=== PATIENT | female | born 1945 ===

== ENCOUNTER 2016-12-01 04:58 | Inpatient (IN) | payer MEDICAID, OTHER ==
[2016-12-01] MEDS ORDERED: Tetanus/Diphtheria Toxoids 0.5 ml Syringe IM ONE ×2 (06:00→06:06)
[2016-12-01] MEDS ORDERED: Epinephrine /Lidocaine HCL 1:100,000/2% 30 ml INJ ONE (06:01)
--- NOTE | 2016-12-01 06:22 | C.PDOC ---
History Of Present Illness 71 year old female presents to the ED by EMS with complaints of trauma to her head after tripping and falling on the sidewalk. Patient admits to being intoxicated and denies fever, LOC, and any other complaints at this time. Time Seen by Provider: 12/01/16 05:26 Chief Complaint (Nursing): Substance Abuse History Per: Patient, EMS History/Exam Limitations: no limitations Onset/Duration Of Symptoms: Hrs Current Symptoms Are (Timing): Still Present Past Medical History Vital Signs: Last Vital Signs Temp 97.8 F 12/01/16 05:13 Pulse 86 12/01/16 05:13 Resp 16 12/01/16 05:13 BP 117/58 L 12/01/16 05:13 Pulse Ox 95 12/01/16 06:28 - Medical History PMH: HTN - [facility] Procedures INSERT INDWELLING CATH (05/19/15) Family History: States: No Known Family Hx - Social History Hx Tobacco Use: No Hx Alcohol Use: Yes Hx Substance Use: No - Immunization History Hx Tetanus Toxoid Vaccination: No Hx Influenza Vaccination: Yes Hx Pneumococcal Vaccination: No Review Of Systems Review Of Systems: ROS cannot be obtained secondary to pt's inabilty to answer questions. Constitutional: Negative for: Fever, Chills Respiratory: Negative for: Shortness of Breath Gastrointestinal: Negative for: Nausea, Vomiting, Abdominal Pain, Diarrhea Neurological: Negative for: Confusion, Dizziness Physical Exam - Physical Exam Appears: Non-toxic, No Acute Distress Skin: Warm, Dry Head: Laceration (2 cm laceration to left parietal scalp ) Eye(s): bilateral: Normal Inspection, PERRL, EOMI Oral Mucosa: Moist Tongue: Normal Appearing Lips: Normal Appearing Teeth: Normal Dentition, No Loose Gingiva: Normal Appearing Throat: Normal, No Erythema Neck: Normal ROM, No Midline Cervical Tenderness, No Paracervical Tenderness, Supple Cardiovascular: Rhythm Regular, No Friction Rub, No Murmur Respiratory: No Accessory Muscle Use, No Rales, No Rhonchi, No Stridor, No Wheezing Gastrointestinal/Abdominal: Soft, No Tenderness, No Distention, No Guarding, No Rebound Back: Normal Inspection, No Vertebral Tenderness, No Paraspinal Tenderness Extremity: Normal ROM, No Tenderness Neurological/Psych: Oriented x3, Normal Speech, Normal Motor Gait: Steady ED Course And Treatment O2 Sat by Pulse Oximetry: 95 (on RA) Pulse Ox Interpretation: Normal Progress Note: IMPRESSION: 1. Small vessel ischemic/degenerative changes. If there is a focal neurologic deficit, consider MRI. evaluation. 2. Hematoma in the left lateral scalp Procedure: Wound Repair - Time Performed Time Performed: 06:10 - Time Out Time Out: Side verified, Site verified - Consent Obtained Consent obtained: Verbal - Performed by Performed by: Mid-level Provider (Joslyn) - Indications Indication(s):: Laceration - Location Location:: Scalp Dimensions Length cm: 2 Depth:: Epidermis - Debris Debris:: None - Irrigated Irrigated with ml of normal saline: 60 - Complexity Complexity:: Simple (one layer) - Wound repair method Sutures:: Technique (Four karol) - Patient tolerated procedure Patient Tolerated Procedure:: Well ED OBSERVATION Date of observation admission: 12/01/16 Time of observation admission: 04:55 - Observation admission statement Patient is being placed in observation because:: alcohol intoxication - Goals of Observation Goals of observation are:: Observing for sobriety - Progress Note Progress Note: 12/01/16 0600 Results were discussed with the radiologist about C7 fracture. Patient placed in Hard C-collar. The case was discussed with Dr. Cruz (Neurosurgeon oncall) who has reviewed the films and states that the patient must stay in a hard [place]J collar and can be discharged home and will follow up outpatient within 1-2 days without fail. Disposition - Disposition Disposition: HOME/ ROUTINE Disposition Time: 06:59 Condition: STABLE - Clinical Impression Clinical Impression: Scalp laceration, Head injury, Cervical spine fracture, Alcohol intoxication - Scribe Statement The provider has reviewed the documentation as recorded by the Scribe Ana Tam All medical record entries made by the Scribe were at my direction and personally dictated by me. I have reviewed the chart and agree that the record accurately reflects my personal performance of the history, physical exam, medical decision making, and the department course for this patient. I have also personally directed, reviewed, and agree with the discharge instructions and disposition. Physician Patient Turnover Patient Signed Over To: Cee Fu (Dr. Hanna) Handoff Comments: Pending sobreity and disposition
[2016-12-01] MEDS ORDERED: Bacitracin 500 Units/gm Oint Foilpak UD ONE (06:26)
--- NOTE | 2016-12-01 06:36 | CT ---
EXAM: CT Cervical Spine Without Intravenous Contrast CLINICAL HISTORY: 71 years old, female; Pain; Neck pain; Additional info: Head injury, AMS TECHNIQUE: Axial computed tomography images of the cervical spine without intravenous contrast. This CT exam was performed using one or more of the following dose reduction techniques: automated exposure control, adjustment of the mA and/or kV according to patient size, and/or use of iterative reconstruction technique. Coronal and sagittal reformatted images were created and reviewed. EXAM DATE/TIME: 12/01/2016 5:27 AM COMPARISON: No relevant prior studies available. FINDINGS: Vertebrae: Osteophytes most prominent at C5 and C6. Nondisplaced fractures right C7 lamina, superior articulating facet and pedicle. Pedicle fracture extends to the right superior posterior C7. No malalignment. Discs/spinal canal/neural foramina: Facet joint arthrosis most prominent at C4-5 and C7-T1. Disc space narrowing at C5-6, and to less extent C3-4 and C4-5. Soft tissues: Unremarkable. Lung apices: Unremarkable as visualized. IMPRESSION: C7 fracture involving the right lamina, superior to T3 facet, pedicle and superior posterior vertebral body.
[2016-12-01] MEDS ORDERED: Bacitracin 500 Units/gm Oint Foilpak UD TOP STA (06:57)
--- NOTE | 2016-12-01 09:12 | CT ---
PROCEDURE: CT HEAD WITHOUT CONTRAST. HISTORY: head injury, altered mental status COMPARISON: None available. TECHNIQUE: Axial computed tomography images were obtained through the head/brain without intravenous contrast. Radiation dose: Total exam DLP = 813 mGy-cm. This CT exam was performed using one or more of the following dose reduction techniques: Automated exposure control, adjustment of the mA and/or kV according to patient size, and/or use of iterative reconstruction technique. FINDINGS: HEMORRHAGE: No intracranial hemorrhage. BRAIN: No mass effect or edema. Scattered focal lucencies in the subcortical and periventricular white matter suggestive for severe chronic microvascular ischemic change. Additional etiologies not excluded. VENTRICLES: Unremarkable. No hydrocephalus. CALVARIUM: Unremarkable. PARANASAL SINUSES: Unremarkable as visualized. No significant inflammatory changes. MASTOID AIR CELLS: Unremarkable as visualized. No inflammatory changes. OTHER FINDINGS: Hematoma in the left lateral scalp. IMPRESSION: Hematoma in the left lateral scalp. Scattered focal lucencies in the subcortical and periventricular white matter suggestive for severe chronic microvascular ischemic change. Additional etiologies not excluded. Correlation with MRI may be helpful if clinically indicated. These findings were preliminarily reported at 6:23 a.m. on 12/01/[address] Vu Manriquez from [facility]
[2016-12-01 10:16] LABS: BASO % 0.3 % (0.0-2.0); EOS % 0.1 % (0.0-4.0); HEMATOCRIT 38.1 % (34.0-47.0); LYMPH # 1.2 K/uL (1.0-4.3); LYMPH % 15.2 % (20.0-40.0); MEAN CORPUSCULAR HGB CONC 33.3 g/dL (33.0-37.0); MEAN PLATELET VOLUME 9.6 fL (7.2-11.7); MONO # 0.6 K/uL (0.0-0.8); MONO % 7.9 % (0.0-10.0); NRBC % 0.1 % (0.0-2.0); RED CELL DISTRIBUTION WIDTH 13.3 % (11.5-14.5); WHITE BLOOD COUNT 7.6 K/uL (4.8-10.8)
[2016-12-01 10:17] LABS: CHLORIDE 97 mmol/L (98-107); SODIUM 138 mmol/L (132-148)
[2016-12-01 10:19] LABS: AST/SGOT 46 U/L (14-36); BILIRUBIN,TOTAL 0.3 mg/dL (0.2-1.3); CARBON DIOXIDE 24 mmol/L (22-30); GFR AFRICAN-AMERICAN > 60; MEAN CELL VOLUME 87.1 fL (81.0-99.0)
[2016-12-01 10:20] LABS: ALKALINE PHOSPHATASE 64 U/L (38-126); ALT/SGPT 23 U/L (9-52); BLOOD UREA NITROGEN 11 mg/dL (7-17); CALCIUM 8.8 mg/dl (8.6-10.4); GLUCOSE,RANDOM 129 mg/dL (65-105); TOTAL PROTEIN 8.6 g/dL (6.3-8.3)
[2016-12-01] MEDS ORDERED: Pantoprazole 40 mg EC Tab PO SCH (12:00)
[2016-12-01] MEDS: HYDROmorphone 1 mg/ml ISec IVP PRN (12:57)
[2016-12-01] MEDS: Multiple Vitamins Tab PO SCH (12:58)
[2016-12-01 14:49] LABS: URINE BILIRUBIN NEGATIVE (NEGATIVE); URINE BLOOD NEGATIVE (NEGATIVE); URINE COLOR Straw (YELLOW); URINE GLUCOSE (UA) NORMAL (Normal); URINE KETONE NEGATIVE (NEGATIVE); URINE LEUKOCYTE ESTERASE NEG Leu/uL (Negative); URINE PROTEIN NEGATIVE (NEGATIVE); URINE UROBILINOGEN NORMAL mg/dL (0.2-1.0); WBC URINE < 1 /hpf (0-5)
--- NOTE | 2016-12-01 15:06 | CP.PCM.HP ---
History of Present Illness - History of Present Illness History of Present Illness: 71-year-old female presents to the ED by EMS with complaints of trauma to her head after tripping and falling on the sidewalk. Patient admits to being intoxicated and denies fever, LOC and any other complaints at this time. Present on Admission - Present on Admission Any Indicators Present on Admission: No Past Patient History - Infectious Disease Hx of Infectious Diseases: None - Past Social History Smoking Status: Never Smoked - CARDIAC Hx Hypertension: Yes - MUSCULOSKELETAL/RHEUMATOLOGICAL Hx Falls: Yes - GENITOURINARY/GYNECOLOGICAL Hx Urinary Tract Infection: Yes - PSYCHIATRIC Hx Anxiety: Yes Hx Depression: Yes Hx Substance Use: No - SURGICAL HISTORY Other/Comment: kidney stone surgery - ANESTHESIA Hx Anesthesia: Yes Hx Anesthesia Reactions: No Meds Home Medications: Home Medication List Medication Instructions Recorded Confirmed Type Alprazolam [Xanax] 0.5 mg PO HS PRN #30 tab 12/05/16 Rx Bisacodyl [Dulcolax] 5 mg PO DAILY tabec 12/05/16 Rx Gabapentin [Neurontin] 300 mg PO BID cap 12/05/16 Rx Multivitamins [Hexavitamin] 1 tab PO DAILY tab 12/05/16 Rx Pantoprazole [Protonix EC Tab] 40 mg PO DAILY ect 12/05/16 Rx Polyethylene Glycol 3350 [Miralax] 17 gm PO DAILY packet 12/05/16 Rx Thiamine [Vitamin B1 Tab] 100 mg PO DAILY tab 12/05/16 Rx Allergies/Adverse Reactions: Allergies Allergy/AdvReac Type Severity Reaction Status Date / Time No Known Allergies Allergy Verified 12/04/15 13:24 Results - Vital Signs Recent Vital Signs: Last Vital Signs Temp 98.3 F 12/01/16 10:55 Pulse 95 H 12/01/16 11:30 Resp 20 12/01/16 10:55 BP 110/65 12/01/16 11:10 Pulse Ox 96 12/01/16 10:55 - Labs Result Diagrams: 12/05/16 06:05 12/05/16 06:05 Labs: Laboratory Results - last 24 hr 12/01/16 12/01/16 10:01 14:25 WBC 7.6 RBC 4.37 Hgb 12.7 Hct 38.1 MCV 87.1 D MCH 29.0 MCHC 33.3 RDW 13.3 Plt Count 158 MPV 9.6 Neut % (Auto) 76.5 H Lymph % (Auto) 15.2 L [place] % (Auto) 7.9 Eos % (Auto) 0.1 Baso % (Auto) 0.3 Neut # 5.8 Lymph # 1.2 [place] # 0.6 Eos # 0.0 Baso # 0.0 Sodium 138 Potassium 4.0 Chloride 97 L Carbon Dioxide 24 Anion Gap 22 H BUN 11 Creatinine 0.6 L Est GFR ( Amer) > 60 Est GFR (Non-Af Amer) > 60 Random Glucose 129 H Calcium 8.8 Total Bilirubin 0.3 AST 46 H D ALT 23 Alkaline Phosphatase 64 Total Creatine Kinase 427 H CK-MB (Mass) 3.10 Troponin I < 0.0120 Total Protein 8.6 H Albumin 4.4 Globulin 4.2 H Albumin/Globulin Ratio 1.0 Urine Color Straw Urine Clarity Clear Urine pH 5.0 Ur Specific [place] 1.006 Urine Protein Negative Urine Glucose (UA) Normal Urine Ketones Negative Urine Blood Negative Urine Nitrate Negative Urine Bilirubin Negative Urine Urobilinogen Normal Ur Leukocyte Esterase Neg Urine WBC (Auto) < 1 Assessment & Plan - Assessment and Plan (Free Text) Plan: protonix cannt give lovenox fracture c7 ct head minor bleed s/p dr. scott neuro pt has uri rentension adn 1200 cc on bld scan s/p foleys cath urology consult u c/s will rain nitrofurantoind uc/s rain followup with consultants quentin dudley
--- NOTE | 2016-12-01 16:32 | CON ---
DATE: 12/01/2016 ATTENDING PHYSICIAN: Dr. Haddad REASON FOR CONSULTATION: Syncope and head trauma and fractured vertebrae. HISTORY OF PRESENT ILLNESS: The patient is a 71-year-old lady with past medical history of ethanol a buse. The patient was admitted because of a fall while getting out of the house of a friend after a birthday constitution party. The patient had wine and beer and on the way she went to the club. On the way, monalisa anderson fell down and hit her head against a tree. The patient is not sure that she lost consciousness, mo st likely because patient hit her head and fell down to the floor and found herself on the floor. Th e patient sustained a cut to her skull that needed stitches and a fracture to her pedicles of the C7 vertebrae. The patient is currently having a hard [place] J collar. In the Emergency Room, the monalisa anderson had nausea and vomiting and was given Zofran. PAST MEDICAL HISTORY: Hypertension and ethanol abuse. FAMILY HISTORY: Father and mother, as per patient, were alcoholics. In addition to hypertension, eliana hood has depression as well, seeing psychiatrist. REVIEW OF SYSTEMS: As per H and P and ER notes, reviewed. PHYSICAL EXAMINATION: VITAL SIGNS: Blood pressure 117/58, pulse 86, respirations 16, temperature 97.8. MENTAL STATUS: The patient is alert, awake, oriented x 3. Normal naming, repetition and comprehensi on. No agnosia. No apraxia. No right to left confusion. CRANIAL NERVES: Pupils 2 mm, bilaterally reactive to light and accommodation. There is mild bilater al cataract. No nystagmus. No double vision. No blurred vision, no facial palsy. No field defect. V1-V3 intact. MOTOR: Normal tone in upper and lower extremities. No pronation drift. No tremors. No action, pos tural tremors. Fine finger movement intact. 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 Lower extremities: Hip flexion, knee flexion and extension, ankle dorsiflexion, plantar extension 5/5. Pat p tendon reflexes 1 in upper and lower extremities, absent at the ankles, plantars flex on both sides . SENSORY: Pinprick and light touch intact. COORDINATION: [id number] intact. IMAGING: I have reviewed the patient's CAT scan of the cervical and the brain, cervical consistent w ith C7 pedicle fracture on the right side and the patient has severe periventricular white matter dis ease, probable bilateral subcortical infarct cannot be excluded. In addition, the patient to have pe riventricular white matter disease secondary to small vessel ischemic changes. IMPRESSION: Status post concussion with questionable loss of consciousness, sustained a fracture to the C7 pedicle on the right side. In addition, the patient has periventricular white matter disease, might represent old infarct versus severe periventricular white matter disease, especially the left subcortical one is more prominent than the right subcortical. Will do repeat CAT scan in the morning and if stroke confirmed and the hypodensity is more than first initial CAT scan, possibility of cere brovascular accident is highly likely. Unfortunately, the patient cannot do MRI because of the metal lic karol in the skull. I have advised the patient to follow up with a neurologist after discharge as an outpatient and have strongly recommended the patient to discontinue her drinking. This is the fourth episode for the patient and she is at high risk for her falls and head trauma and fractures. Above also discussed with daughter at bedside. All her questions and concerns were answered. She will have an EEG and repeat CAT scan in the a.m. and Dr. Garcia will follow the patient tomorrow. Thank you for the consultation. Saleem Rodrigez MD cc: [id number] TT: 12/01/2016 16:31:18 Confirmation # [id number] Dictation # [id number]
--- NOTE | 2016-12-01 18:54 | CON ---
DATE: 12/01/2016 This is a 71-year-old lady who quite continue seemingly was drinking heavily last night into the morn ing, fell. She states this is her fourth fall. She was brought to the [facility] ER complainin g of mostly headache actually. She underwent a CT of the brain and spine. Somewhat surprising the [facility] CT showed a spine fracture. Neurosurgical evaluation was requested. The patient at this point in time does state she is having pain in the lower cervical area. Denies a ny numbness, weakness, tingling or other neurological symptoms. Her past medical history, medications, allergies, etc. were all reviewed in the EMR. PHYSICAL EXAMINATION: GENERAL: She is bright, awake and alert. HEENT: Pupils are equal and reactive. Extraocular movements are full. NEUROLOGIC: She has 5/5 strength in all 4 extremities. Sensory exam is grossly intact. Excellent p roprioception bilaterally. Reflexes are muted throughout. CT shows a linear fracture essentially through the right C7 lamina facet junction into the pedicle. There is no displacement at all. There is no significant part of the fracture involving the body and the left side is completely intact. IMPRESSION AND PLAN: I believe this is a fracture that can successfully be treated and an external o rthosis. I have placed her in a [place] J collar myself. She has a size regular which fits her quite nicely. My recommendation would be to continue her in the [place] J collar for 6 weeks and check a fol lowup CT scan at that time, with again a very high chance of successful healing. I underscored to her and her daughter, who also served as an clerical office, that it is imperative that she remain in the collar at all times. This was emphasized to her in the strongest possible term. M y recommendation would be to obtain a second collar for her in the same size so that she can carefull y alternate and keep them clean. I gave her my business card. I will see her in the office within the next several weeks and arrange for a followup CT scan as documented above. Milind Cruz MD cc: [id number] TT: 12/01/2016 18:53:45 Confirmation # [id number] Dictation # [id number] mn
[2016-12-02] MEDS: HYDROmorphone 1 mg/ml ISec IVP PRN ×3 (00:09→17:44)
--- NOTE | 2016-12-02 08:36 | PN ---
DATE: 12/02/2016 NEUROLOGICAL PROBLEM: Syncopal attack secondary to alcohol intoxication with status post cervical ve rtebral fracture. PHYSICAL EXAMINATION: VITAL SIGNS: Blood pressure 109/73, mean arterial pressure of 85, respiratory rate 16, temperature 9 8.9, pulse rate 93. NEUROLOGIC: The patient is more awake, alert. No antegrade amnesia. Complaining of pain in her nec k, some numbness on her left arm which is from the way she slept on her left side and the position in the bed. She denies any weakness of her arms and legs. No visual disturbances. NECK: Immobilized with a hard collar. The patient also had karol on her left parietal region. RECOMMENDATIONS: 1. The patient did have a laceration on her left side and the patient should have a followup CT of t he head to rule out any delayed bleed. However, MRA should be done when the karol have been remove d. 2. Electroencephalogram should be done to rule out any seizure activities. 3. Unwanted medication should be discontinued such as zolpidem should be discontinued. 4. The patient is requested to have an electroencephalogram and the patient also discussed about her alcohol abstinence. Unwanted sedatives should be discontinued at present. 5. The patient's further workup is depending on recommended workup as well as the results. 6. The patient is also recommended to have orthopedic evaluation for her cervical spine fracture. The patient will be followed closely with you. Otis Garcia MD cc: [id number] TT: 12/02/2016 08:36:43 Confirmation # [id number] Dictation # [id number] mn
[2016-12-02] MEDS ORDERED: Home Med 1 UNIT (Valsartan [Diovan] 1 TAB) PO SCH (10:00)
--- NOTE | 2016-12-02 10:00 | CT ---
PROCEDURE: CT HEAD WITHOUT CONTRAST. HISTORY: repeat Head CT status post fall COMPARISON: 12/01/2016 TECHNIQUE: Axial computed tomography images were obtained through the head/brain without intravenous contrast. Radiation dose: Total exam DLP = 981.84 mGy-cm. This CT exam was performed using one or more of the following dose reduction techniques: Automated exposure control, adjustment of the mA and/or kV according to patient size, and/or use of iterative reconstruction technique. FINDINGS: HEMORRHAGE: No intracranial hemorrhage. BRAIN: No mass effect or edema. Mild diffuse atrophy. Scattered foci of white matter low attenuation in the periventricular deep and subcortical white matter consistent with microvascular ischemic change. No evidence of acute infarct. VENTRICLES: Unremarkable. No hydrocephalus. CALVARIUM: No fracture. Left frontal scalp contusion with cutaneous karol. PARANASAL SINUSES: Unremarkable as visualized. No significant inflammatory changes. MASTOID AIR CELLS: Unremarkable as visualized. No inflammatory changes. OTHER FINDINGS: None. IMPRESSION: No intracranial hemorrhage. Age related involutional changes. No significant change from CT examination of 12/01/2016.
[2016-12-02] MEDS: Multiple Vitamins Tab PO SCH (11:00)
[2016-12-02] MEDS: Pantoprazole 40 mg EC Tab PO SCH (11:00)
--- NOTE | 2016-12-02 11:20 | CP.PCM.PN ---
Subjective - Date & Time of Evaluation Date of Evaluation: 12/02/16 Time of Evaluation: 11:16 - Subjective Subjective: Pt admitted afer fall wth acute cervical fracture,who developed urinary retention. pt has a mohr in place. A acute urinary retention. Suggest leave mohr,when cervical fx stabalized. pt should be refered to who accepts [facility] plan for full outpatient gu eval. Objective - Vital Signs/Intake and Output Vital Signs (last 24 hours): Temp Pulse Resp BP Pulse Ox 99.8 F H 93 H 18 136/73 96 12/02/16 07:02 12/02/16 10:58 12/02/16 07:02 12/02/16 10:58 12/02/16 07:02 Intake and Output: 12/02/16 12/02/16 06:59 18:59 Intake Total 60 Output Total 900 Balance -840 - Medications Medications: Current Medications Alprazolam (Xanax) 0.5 mg PO HS [facility] Last Admin: 12/01/16 21:16 Dose: 0.5 mg Ciprofloxacin (Cipro) 250 mg PO BID [facility] Last Admin: 12/01/16 17:54 Dose: 250 mg Hydrochlorothiazide (Microzide) 12.5 mg PO DAILY [facility] Last Admin: 12/02/16 11:00 Dose: 12.5 mg Hydromorphone HCl (Dilaudid) 1 mg IVP Q8H PRN PRN Reason: Pain, moderate (4-7) Last Admin: 12/02/16 08:29 Dose: 1 mg Losartan Potassium (Cozaar) 100 mg PO DAILY [facility] Last Admin: 12/02/16 11:00 Dose: 100 mg Multivitamins (Hexavitamin) 1 tab PO DAILY [facility] Last Admin: 12/02/16 11:00 Dose: 1 tab Pantoprazole Sodium (Protonix Ec Tab) 40 mg PO DAILY [facility] Last Admin: 12/02/16 11:00 Dose: 40 mg Pneumococcal Polyvalent Vaccine (Pneumovax 23 Vaccine) 0.5 ml IM .ONCE ONE Stop: 12/04/16 10:01 Thiamine HCl (Vitamin B1 Tab) 100 mg PO DAILY [facility] Last Admin: 12/02/16 11:00 Dose: 100 mg - Labs Labs: 12/01/16 10:01 12/01/16 10:01
--- NOTE | 2016-12-02 18:42 | CARD ---
APPROVED REPORT EKG Measurement Heart [id number] <Conclusion> Normal sinus rhythm Nonspecific T wave abnormality Abnormal ECG
--- NOTE | 2016-12-02 18:53 | CP.PCM.PN ---
Subjective - Date & Time of Evaluation Date of Evaluation: 12/02/16 Time of Evaluation: 02:20 - Subjective Subjective: clinically same s/p Dr Harvey ocasio Objective - Vital Signs/Intake and Output Vital Signs (last 24 hours): Temp Pulse Resp BP Pulse Ox 97.5 F L 86 20 151/84 H 95 12/02/16 16:39 12/02/16 18:27 12/02/16 16:39 12/02/16 16:39 12/02/16 16:39 Intake and Output: 12/02/16 12/02/16 06:59 18:59 Intake Total 60 200 Output Total 900 400 Balance -840 -200 - Medications Medications: Current Medications Alprazolam (Xanax) 0.5 mg PO HS [facility] Last Admin: 12/01/16 21:16 Dose: 0.5 mg Ciprofloxacin (Cipro) 250 mg PO BID [facility] Last Admin: 12/02/16 17:44 Dose: 250 mg Hydrochlorothiazide (Microzide) 12.5 mg PO DAILY [facility] Last Admin: 12/02/16 11:00 Dose: 12.5 mg Hydromorphone HCl (Dilaudid) 1 mg IVP Q8H PRN PRN Reason: Pain, moderate (4-7) Last Admin: 12/02/16 17:44 Dose: 1 mg Losartan Potassium (Cozaar) 100 mg PO DAILY [facility] Last Admin: 12/02/16 11:00 Dose: 100 mg Multivitamins (Hexavitamin) 1 tab PO DAILY [facility] Last Admin: 12/02/16 11:00 Dose: 1 tab Pantoprazole Sodium (Protonix Ec Tab) 40 mg PO DAILY [facility] Last Admin: 12/02/16 11:00 Dose: 40 mg Pneumococcal Polyvalent Vaccine (Pneumovax 23 Vaccine) 0.5 ml IM .ONCE ONE Stop: 12/04/16 10:01 Thiamine HCl (Vitamin B1 Tab) 100 mg PO DAILY [facility] Last Admin: 12/02/16 11:00 Dose: 100 mg - Labs Labs: 12/01/16 10:01 12/01/16 10:01 - Constitutional Appears: Well - Head Exam Head Exam: ATRAUMATIC, NORMAL INSPECTION, NORMOCEPHALIC - Eye Exam Eye Exam: EOMI, Normal appearance, PERRL Pupil Exam: NORMAL ACCOMODATION, PERRL - ENT Exam ENT Exam: Mucous Membranes Moist, Normal Exam - Neck Exam Neck Exam: Full ROM, Normal Inspection. absent: Lymphadenopathy - Respiratory Exam Respiratory Exam: Decreased Breath Sounds - Cardiovascular Exam Cardiovascular Exam: REGULAR RHYTHM, +S1, +S2 - GI/Abdominal Exam GI & Abdominal Exam: Soft, Diminished Bowel Sounds - Rectal Exam Rectal Exam: Deferred - Neurological Exam Neurological Exam: Alert, Awake, Oriented x3 Assessment and Plan (1) Alcohol intoxication Status: Acute (2) Bronchitis Status: Acute (3) Cervical spine fracture Status: Acute (4) Dysuria Status: Acute (5) HTN (hypertension) Status: Acute (6) Head injury Status: Acute (7) Prophylactic measure Status: Acute (8) Scalp laceration Status: Acute (9) Skin irritation from shaving Status: Acute (10) Suprapubic pain Status: Acute (11) UTI (urinary tract infection) Status: Acute (12) Urinary retention Status: Acute - Assessment and Plan (Free Text) Plan: rain abx Dr Gabriel Uro on board protonix IV dilaudid rain other meds as ordered f/u labs f/u imaging rain mx as ordered
[2016-12-03] MEDS: HYDROmorphone 1 mg/ml ISec IVP PRN ×2 (08:49→17:31)
--- NOTE | 2016-12-03 10:27 | CP.PCM.PN ---
Subjective - Date & Time of Evaluation Date of Evaluation: 12/03/16 Time of Evaluation: 13:20 - Subjective Subjective: clinically same Dr Gabriel following pain being managed Objective - Vital Signs/Intake and Output Vital Signs (last 24 hours): Temp Pulse Resp BP Pulse Ox 98.3 F 98 H 18 111/67 97 12/03/16 07:02 12/03/16 08:48 12/03/16 07:02 12/03/16 08:48 12/03/16 07:02 Intake and Output: 12/03/16 12/03/16 06:59 18:59 Intake Total 300 Output Total 1975 Balance -1675 - Medications Medications: Current Medications Alprazolam (Xanax) 0.5 mg PO HS [facility] Last Admin: 12/02/16 21:59 Dose: 0.5 mg Ciprofloxacin (Cipro) 250 mg PO BID [facility] Last Admin: 12/02/16 17:44 Dose: 250 mg Hydrochlorothiazide (Microzide) 12.5 mg PO DAILY [facility] Last Admin: 12/02/16 11:00 Dose: 12.5 mg Hydromorphone HCl (Dilaudid) 1 mg IVP Q8H PRN PRN Reason: Pain, moderate (4-7) Last Admin: 12/03/16 08:49 Dose: 1 mg Losartan Potassium (Cozaar) 100 mg PO DAILY [facility] Last Admin: 12/02/16 11:00 Dose: 100 mg Multivitamins (Hexavitamin) 1 tab PO DAILY [facility] Last Admin: 12/02/16 11:00 Dose: 1 tab Pantoprazole Sodium (Protonix Ec Tab) 40 mg PO DAILY [facility] Last Admin: 12/02/16 11:00 Dose: 40 mg Pneumococcal Polyvalent Vaccine (Pneumovax 23 Vaccine) 0.5 ml IM .ONCE ONE Stop: 12/04/16 10:01 Thiamine HCl (Vitamin B1 Tab) 100 mg PO DAILY [facility] Last Admin: 12/02/16 11:00 Dose: 100 mg - Labs Labs: 12/01/16 10:01 12/01/16 10:01 - Constitutional Appears: Well - Head Exam Head Exam: ATRAUMATIC, NORMAL INSPECTION, NORMOCEPHALIC - Eye Exam Eye Exam: EOMI, Normal appearance, PERRL Pupil Exam: NORMAL ACCOMODATION, PERRL - ENT Exam ENT Exam: Mucous Membranes Moist, Normal Exam - Neck Exam Neck Exam: Full ROM, Normal Inspection. absent: Lymphadenopathy - Respiratory Exam Respiratory Exam: Decreased Breath Sounds - Cardiovascular Exam Cardiovascular Exam: REGULAR RHYTHM, +S1, +S2 - GI/Abdominal Exam GI & Abdominal Exam: Soft, Diminished Bowel Sounds - Rectal Exam Rectal Exam: Deferred - Neurological Exam Neurological Exam: Alert, Awake, Oriented x3 Assessment and Plan (1) Alcohol intoxication Status: Acute (2) Bronchitis Status: Acute (3) Cervical spine fracture Status: Acute (4) Dysuria Status: Acute (5) HTN (hypertension) Status: Acute (6) Head injury Status: Acute (7) Prophylactic measure Status: Acute (8) Scalp laceration Status: Acute (9) Skin irritation from shaving Status: Acute (10) Suprapubic pain Status: Acute (11) UTI (urinary tract infection) Status: Acute (12) Urinary retention Status: Acute - Assessment and Plan (Free Text) Plan: rain abx dilaudid protonix rain same mx as ordered Dr Harvey Burkett f/u imaging
[2016-12-03] MEDS: Pantoprazole 40 mg EC Tab PO SCH (10:55)
[2016-12-03] MEDS: Multiple Vitamins Tab PO SCH (10:55)
--- NOTE | 2016-12-03 13:15 | CON ---
DATE: 12/02/2016 CHIEF COMPLAINT: Urinary retention. HISTORY OF PRESENT ILLNESS: The patient was admitted to the hospital and worked up and found to have a cervical spine fracture. This fracture is being treated conservatively with a cervical collar. T he patient was found to be in urinary retention with a 1600 mL residual and a Zaidi catheter was inse rted. She gives a history of having slight difficulty in urination prior to her fall, but now she sa ys that her abdomen was very distended and she could not urinate. REVIEW OF SYSTEMS: RESPIRATORY: The patient has no history of respiratory illness. CARDIAC: The patient gives no history of cardiac history. GASTROINTESTINAL: The patient gives no history of GI complaints. No history of constipation or diar ketan. GENITOURINARY: The patient says she had some difficulty in emptying her bladder prior to the fall, b ut now she is not able to urinate at all. Zaidi catheter has been placed and is draining clear urine . GYNECOLOGIC: The patient gives no history of STUDENT [employer]IV[employer] DIRECT[employer] problems. SOCIAL AND FAMILY HISTORY: Noncontributory. I have also reviewed the patient's chart and the documentation from the attending physician and consu lting physicians. PHYSICAL EXAMINATION: VITAL SIGNS: The patient is afebrile. Vital signs are within normal limits. HEAD, EARS, EYES, NOSE AND THROAT Within normal limits. NECK: Supple. There are no bruits, nodes, or masses. CHEST: Clear bilaterally. There are no rales or rhonchi. HEART: Normal sinus rhythm. There is no murmur. ABDOMEN: Soft, nontender. There are no masses or organomegaly. VAGINAL: Declined by the patient. RECTAL: Declined by the patient. EXTREMITIES: The patient is moving all 4 extremities. She is sitting up in bed with a cervical nida ar. I have reviewed all the lab work, the CAT scan results and the nursing documentation. I have also di scussed this case with Dr. Edilson Haddad. IMPRESSION: Urinary retention, probably due to a combination of some preexisting condition and her r ecent fall. SUGGEST: Leave the Zaidi catheter in place. After discharge, the patient should be sent for complet e urological evaluation including urodynamics. The patient has [employer] which I am not a member. Thank you for this consultation. Vu Gabriel MD cc: [id number] TT: 12/03/2016 13:14:45 Confirmation # [id number] Dictation # [id number] tn
[2016-12-03 13:35] LABS: RBC URINE 10 /hpf (0-3); URINE BILIRUBIN NEGATIVE (NEGATIVE); URINE BLOOD 1+ (NEGATIVE); URINE COLOR Yellow (YELLOW); URINE GLUCOSE (UA) NORMAL (Normal); URINE KETONE NEGATIVE (NEGATIVE); URINE LEUKOCYTE ESTERASE TRACE Leu/uL (Negative); URINE PROTEIN NEGATIVE (NEGATIVE); URINE UROBILINOGEN NORMAL mg/dL (0.2-1.0); WBC URINE 1 /hpf (0-5)
--- NOTE | 2016-12-03 16:54 | RAD ---
PROCEDURE: Radiographs of the Left Shoulder HISTORY: left shoulder pain, status post fall COMPARISON: 10/11/2016 FINDINGS: BONES: No fracture JOINTS: Acromioclavicular and glenohumeral joint space narrowing with osseous hypertrophic changes at both sites SOFT TISSUES: Normal. OTHER FINDINGS: Thoracic spondylosis. Generalized osteopenia IMPRESSION: Glenohumeral and acromioclavicular joint osteoarthrosis. No fracture or dislocation. Findings similar.
--- NOTE | 2016-12-04 09:16 | CP.PCM.PN ---
<Bi Rebolledo H - Last Filed: 12/04/16 17:04> Subjective - Date & Time of Evaluation Date of Evaluation: 12/04/16 Time of Evaluation: 09:30 - Subjective Subjective: Dr. Haddad service: Patient seen and examined in room Patient is in a c-collar. She is complaining of left sided shoulder pain. She says she she feels very comfortable in the cervical collar but understands why she has to wear it. She is asking about the shoulder x:ray results. Objective - Vital Signs/Intake and Output Vital Signs (last 24 hours): Temp Pulse Resp BP Pulse Ox 98.7 F 82 20 119/60 96 12/04/16 07:02 12/04/16 08:00 12/04/16 07:02 12/04/16 07:02 12/04/16 07:02 Intake and Output: 12/04/16 12/04/16 06:59 18:59 Intake Total 250 Output Total 1325 Balance -1075 - Medications Medications: Current Medications Alprazolam (Xanax) 0.5 mg PO HS [facility] Last Admin: 12/03/16 21:48 Dose: 0.5 mg Ciprofloxacin (Cipro) 250 mg PO BID [facility] Last Admin: 12/03/16 17:31 Dose: 250 mg Gabapentin (Neurontin) 300 mg PO BID [facility] Last Admin: 12/03/16 17:31 Dose: 300 mg Hydrochlorothiazide (Microzide) 12.5 mg PO DAILY [facility] Last Admin: 12/03/16 11:10 Dose: 12.5 mg Hydromorphone HCl (Dilaudid) 1 mg IVP Q8H PRN PRN Reason: Pain, moderate (4-7) Last Admin: 12/03/16 17:31 Dose: 1 mg Losartan Potassium (Cozaar) 100 mg PO DAILY [facility] Last Admin: 12/03/16 10:55 Dose: 100 mg Multivitamins (Hexavitamin) 1 tab PO DAILY [facility] Last Admin: 12/03/16 10:55 Dose: 1 tab Pantoprazole Sodium (Protonix Ec Tab) 40 mg PO DAILY [facility] Last Admin: 12/03/16 10:55 Dose: 40 mg Pneumococcal Polyvalent Vaccine (Pneumovax 23 Vaccine) 0.5 ml IM .ONCE ONE Stop: 12/04/16 10:01 Thiamine HCl (Vitamin B1 Tab) 100 mg PO DAILY [facility] Last Admin: 12/03/16 11:10 Dose: 100 mg - Constitutional Appears: Non-toxic, No Acute Distress, Other - Head Exam Head Exam: NORMAL INSPECTION - Eye Exam Eye Exam: PERRL - Neck Exam Additional comments: patient is in C-collar - Respiratory Exam Respiratory Exam: Clear to Ausculation Bilateral. absent: Rhonchi, Wheezes - Cardiovascular Exam Cardiovascular Exam: REGULAR RHYTHM, RRR, +S1, +S2. absent: Gallop, Rubs - GI/Abdominal Exam GI & Abdominal Exam: Soft, Normal Bowel Sounds. absent: Tenderness - Extremities Exam Extremities Exam: Normal Inspection. absent: Pedal Edema - Back Exam Back Exam: NORMAL INSPECTION - Psychiatric Exam Psychiatric exam: Normal Affect, Normal Mood - Skin Skin Exam: Normal Color Assessment and Plan (1) Cervical spine fracture Assessment & Plan: Dr. Garcia and Dr. Cruz consulted, help appreciated. Patient is to be discharged to [facility] pending authorization. Status: Acute (2) HTN (hypertension) Assessment & Plan: Cozaar 100mg HCTZ 12.5 Status: Acute (3) Urinary retention Assessment & Plan: Dr. Gabriel consulted. a mohr catheter is in place. Plan is for patient to follow up with her Urologist after discharge from hospital. Status: Acute (4) Prophylactic measure Assessment & Plan: Protonix 40mg Status: Acute <Aliya Haddad S - Last Filed: 12/04/16 21:53> Objective - Vital Signs/Intake and Output Vital Signs (last 24 hours): Temp Pulse Resp BP Pulse Ox 98.3 F 83 20 102/56 L 96 12/04/16 15:41 12/04/16 15:41 12/04/16 15:41 12/04/16 15:41 12/04/16 15:41 Intake and Output: 12/04/16 12/05/16 18:59 06:59 Intake Total 350 Output Total 250 Balance 100 - Medications Medications: Current Medications Alprazolam (Xanax) 0.5 mg PO [facility] Last Admin: 12/03/16 21:48 Dose: 0.5 mg Ciprofloxacin (Cipro) 250 mg PO BID [facility] Last Admin: 12/04/16 17:25 Dose: 250 mg Gabapentin (Neurontin) 300 mg PO BID [facility] Last Admin: 12/04/16 17:25 Dose: 300 mg Hydrochlorothiazide (Microzide) 12.5 mg PO DAILY [facility] Last Admin: 12/04/16 11:00 Dose: 12.5 mg Hydromorphone HCl (Dilaudid) 1 mg IVP Q8H PRN PRN Reason: Pain, moderate (4-7) Last Admin: 12/04/16 19:26 Dose: 1 mg Losartan Potassium (Cozaar) 100 mg PO DAILY [facility] Last Admin: 12/04/16 11:00 Dose: 100 mg Multivitamins (Hexavitamin) 1 tab PO DAILY [facility] Last Admin: 12/04/16 10:12 Dose: 1 tab Pantoprazole Sodium (Protonix Ec Tab) 40 mg PO DAILY [facility] Last Admin: 12/04/16 10:12 Dose: 40 mg Thiamine HCl (Vitamin B1 Tab) 100 mg PO DAILY [facility] Last Admin: 12/04/16 10:12 Dose: 100 mg Attending/Attestation - Attestation I have personally seen and examined this patient.: Yes I have fully participated in the care of the patient.: Yes I have reviewed all pertinent clinical information, including history, physical exam and plan: Yes Notes (Text): 12/04/16 21:53 case seen and discussed with staff and resident mx as ordered
[2016-12-04] MEDS ORDERED: Pneumococcal 23-Valent Vaccine IM ONE ×2 (10:00→14:00)
[2016-12-04] MEDS: Pantoprazole 40 mg EC Tab PO SCH (10:12)
[2016-12-04] MEDS: Multiple Vitamins Tab PO SCH (10:12)
[2016-12-04] MEDS: HYDROmorphone 1 mg/ml ISec IVP PRN ×2 (11:19→19:26)
--- NOTE | 2016-12-04 18:03 | CP.PCM.PN ---
Subjective - Date & Time of Evaluation Date of Evaluation: 12/04/16 Time of Evaluation: 13:00 - Subjective Subjective: clinically same s/p CT Head -ve for changes from initial CT Dr Gabriel following Objective - Vital Signs/Intake and Output Vital Signs (last 24 hours): Temp Pulse Resp BP Pulse Ox 98.3 F 83 20 102/56 L 96 12/04/16 15:41 12/04/16 15:41 12/04/16 15:41 12/04/16 15:41 12/04/16 15:41 Intake and Output: 12/04/16 12/04/16 06:59 18:59 Intake Total 250 350 Output Total 1325 250 Balance -1075 100 - Medications Medications: Current Medications Alprazolam (Xanax) 0.5 mg PO HS [facility] Last Admin: 12/03/16 21:48 Dose: 0.5 mg Ciprofloxacin (Cipro) 250 mg PO BID [facility] Last Admin: 12/04/16 17:25 Dose: 250 mg Gabapentin (Neurontin) 300 mg PO BID [facility] Last Admin: 12/04/16 17:25 Dose: 300 mg Hydrochlorothiazide (Microzide) 12.5 mg PO DAILY [facility] Last Admin: 12/04/16 11:00 Dose: 12.5 mg Hydromorphone HCl (Dilaudid) 1 mg IVP Q8H PRN PRN Reason: Pain, moderate (4-7) Last Admin: 12/04/16 11:19 Dose: 1 mg Losartan Potassium (Cozaar) 100 mg PO DAILY [facility] Last Admin: 12/04/16 11:00 Dose: 100 mg Multivitamins (Hexavitamin) 1 tab PO DAILY [facility] Last Admin: 12/04/16 10:12 Dose: 1 tab Pantoprazole Sodium (Protonix Ec Tab) 40 mg PO DAILY [facility] Last Admin: 12/04/16 10:12 Dose: 40 mg Thiamine HCl (Vitamin B1 Tab) 100 mg PO DAILY [facility] Last Admin: 12/04/16 10:12 Dose: 100 mg - Constitutional Appears: Well - Head Exam Head Exam: ATRAUMATIC, NORMAL INSPECTION, NORMOCEPHALIC - Eye Exam Eye Exam: EOMI, Normal appearance, PERRL Pupil Exam: NORMAL ACCOMODATION, PERRL - ENT Exam ENT Exam: Mucous Membranes Moist, Normal Exam - Neck Exam Neck Exam: Full ROM, Normal Inspection. absent: Lymphadenopathy - Respiratory Exam Respiratory Exam: Decreased Breath Sounds - Cardiovascular Exam Cardiovascular Exam: REGULAR RHYTHM, +S1, +S2 - GI/Abdominal Exam GI & Abdominal Exam: Soft, Diminished Bowel Sounds - Rectal Exam Rectal Exam: Deferred - Neurological Exam Neurological Exam: Alert, Awake Assessment and Plan (1) Alcohol intoxication Status: Acute (2) Bronchitis Status: Acute (3) Cervical spine fracture Status: Acute (4) Dysuria Status: Acute (5) HTN (hypertension) Status: Acute (6) Head injury Status: Acute (7) Prophylactic measure Status: Acute (8) Scalp laceration Status: Acute (9) Skin irritation from shaving Status: Acute (10) Suprapubic pain Status: Acute (11) UTI (urinary tract infection) Status: Acute (12) Urinary retention Status: Acute - Assessment and Plan (Free Text) Plan: repeat CT Head negative for hemorrhage or acute changes s/p XR shoulder -ve Dr Harvey rodrigez mx as ordered f/u labs
--- NOTE | 2016-12-04 20:05 | EEG ---
DATE: 12/03/2016 A resting electroencephalogram. A 16-channel electroencephalogram shows 40-50 microvolt alpha activity seen at parietal and occipital leads. Anteriorly, fast activity superimposed with 2-3 Hz, and delta activity seen at frontal and c entral leads. Intermittent movement artifact as well as eye blinking artifact contaminated the backg round rhythm. Later this activity slowed down form 2-3 Hz delta activity seen, which is consistent w ith early drowsiness. The photic stimulation did not evoke driving response noted at 2-20 Hz. IMPRESSION: This is a normal electroencephalogram of awake and drowsy adult. During the study, neit her electroencephalographic paroxysmal activities nor focal slowing noted. Otis Garcia MD cc: [id number] TT: 12/04/2016 20:05:07 Confirmation # [id number] Dictation # [id number] nubia
[2016-12-05 06:23] LABS: BASO % 0.5 % (0.0-2.0); EOS # 0.1 K/uL (0.0-0.7); EOS % 2.2 % (0.0-4.0); HEMATOCRIT 35.5 % (34.0-47.0); LYMPH % 23.2 % (20.0-40.0); MEAN CELL VOLUME 86.2 fL (81.0-99.0); MEAN CORPUSCULAR HEMOGLOBIN 29.8 pg (27.0-31.0); MEAN CORPUSCULAR HGB CONC 34.6 g/dL (33.0-37.0); MEAN PLATELET VOLUME 9.5 fL (7.2-11.7); MONO # 0.6 K/uL (0.0-0.8); MONO % 13.9 % (0.0-10.0); NRBC % 0.2 % (0.0-2.0); RED CELL DISTRIBUTION WIDTH 12.6 % (11.5-14.5); WHITE BLOOD COUNT 4.5 K/uL (4.8-10.8)
--- NOTE | 2016-12-05 07:32 | PN ---
DATE: 12/05/2016 NEUROLOGICAL PROBLEM: Status post post-concussion syndrome, vertebral fracture, under [place] hard col lar. PHYSICAL EXAMINATION: VITAL SIGNS: Blood pressure 111/60, mean arterial pressure of 77, respiratory rate 16, temperature 9 8.3, pulse rate 79, regular. NEUROLOGIC: The patient is more awake, alert, ambulatory on her own. She is still complaining of le ft arm pain. She feels discomfort with wearing the hard collar. The rest of the examination is same as my previous examination. Electroencephalogram been reviewed by me, showed normal electroencephalographic activities noted. No focal slowing or paroxysmal activities noted. The patient is neurologically cleared. The patient should have a followup visit with me for her poss ible cervical radiculopathy, which may need electrodiagnostic studies, which can be done as outpatien t. Prior to the discharge, patient also should be cleared by neurosurgeon who has been working on th is case. The patient's condition has been discussed with the resident as well. Otis Garcia MD cc: [id number] TT: 12/05/2016 07:32:27 Confirmation # [id number] Dictation # [id number]
[2016-12-05 07:40] LABS: CHLORIDE 97 mmol/L (98-107); SODIUM 138 mmol/L (132-148)
[2016-12-05 07:41] LABS: POTASSIUM 3.3 mmol/L (3.6-5.2)
[2016-12-05 07:43] LABS: ALKALINE PHOSPHATASE 60 U/L (38-126); ALT/SGPT 23 U/L (9-52); AST/SGOT 42 U/L (14-36); BILIRUBIN,TOTAL 0.8 mg/dL (0.2-1.3); BLOOD UREA NITROGEN 12 mg/dL (7-17); CARBON DIOXIDE 31 mmol/L (22-30); GFR AFRICAN-AMERICAN > 60; GLUCOSE,RANDOM 102 mg/dL (65-105); PHOSPHOROUS 3.6 mg/dL (2.5-4.5); TOTAL PROTEIN 7.9 g/dL (6.3-8.3)
[2016-12-05 07:44] LABS: CALCIUM 8.7 mg/dl (8.6-10.4)
[2016-12-05] MEDS: HYDROmorphone 1 mg/ml ISec IVP PRN ×2 (08:27→15:49)
[2016-12-05 09:44] VITALS: PULSE 84
[2016-12-05] MEDS: Pantoprazole 40 mg EC Tab PO SCH (09:45)
[2016-12-05] MEDS: Multiple Vitamins Tab PO SCH (09:46)
[2016-12-05] MEDS ORDERED: Potassium Chloride 20 mEq ER Tab PO ONE (10:00)
[2016-12-05] MEDS ORDERED: Bisacodyl 5mg EC Tab PO SCH (10:00)
[2016-12-05] MEDS ORDERED: POLYETHYLENE GLYCOL 3350 17 GM/Dose PACKET PO SCH (10:00)
--- NOTE | 2016-12-05 10:48 | CP.PCM.PN ---
<Umer Fielsd - Last Filed: 12/05/16 13:26> Subjective - Date & Time of Evaluation Date of Evaluation: 12/05/16 Time of Evaluation: 09:05 - Subjective Subjective: Medicine Note- Dr. Haddad's service Patient was seen and examined at bedside. Patient reports no acute complaints at this time, except for some discomfort from cervical collar. Patient reports she has not had a bowel movement in about 4 days. No events overnight. Reinforced necessity of having cervical collar on at all times. Objective - Vital Signs/Intake and Output Vital Signs (last 24 hours): Temp Pulse Resp BP Pulse Ox 98.3 F 84 17 111/71 95 12/05/16 07:05 12/05/16 09:44 12/05/16 07:05 12/05/16 09:44 12/05/16 07:05 Intake and Output: 12/05/16 12/05/16 06:59 18:59 Output Total 1300 Balance -1300 - Medications Medications: Current Medications Alprazolam (Xanax) 0.5 mg PO HS [facility] Last Admin: 12/04/16 22:17 Dose: 0.5 mg Bisacodyl (Dulcolax) 5 mg PO DAILY [facility] Stop: 12/06/16 10:01 Last Admin: 12/05/16 10:36 Dose: 5 mg Ciprofloxacin (Cipro) 250 mg PO BID [facility] Last Admin: 12/05/16 09:45 Dose: 250 mg Gabapentin (Neurontin) 300 mg PO BID [facility] Last Admin: 12/05/16 09:45 Dose: 300 mg Hydrochlorothiazide (Microzide) 12.5 mg PO DAILY [facility] Last Admin: 12/05/16 09:46 Dose: 12.5 mg Hydromorphone HCl (Dilaudid) 1 mg IVP Q8H PRN PRN Reason: Pain, moderate (4-7) Last Admin: 12/05/16 08:27 Dose: 1 mg Losartan Potassium (Cozaar) 100 mg PO DAILY [facility] Last Admin: 12/05/16 09:45 Dose: 100 mg Multivitamins (Hexavitamin) 1 tab PO DAILY [facility] Last Admin: 12/05/16 09:46 Dose: 1 tab Pantoprazole Sodium (Protonix Ec Tab) 40 mg PO DAILY [facility] Last Admin: 12/05/16 09:45 Dose: 40 mg Polyethylene Glycol (Miralax) 17 gm PO DAILY [facility] Stop: 12/06/16 10:01 Thiamine HCl (Vitamin B1 Tab) 100 mg PO DAILY [facility] Last Admin: 12/05/16 09:45 Dose: 100 mg - Labs Labs: 12/05/16 06:05 12/05/16 06:05 - Constitutional Appears: Non-toxic, No Acute Distress - Head Exam Head Exam: ATRAUMATIC, NORMAL INSPECTION, NORMOCEPHALIC - Eye Exam Pupil Exam: NORMAL ACCOMODATION, PERRL - ENT Exam ENT Exam: Mucous Membranes Moist - Respiratory Exam Respiratory Exam: Clear to Ausculation Bilateral, NORMAL BREATHING PATTERN. absent: Prolonged Expiratory Phase, Rales, Rhonchi, Wheezes - Cardiovascular Exam Cardiovascular Exam: REGULAR RHYTHM, +S1, +S2 - GI/Abdominal Exam GI & Abdominal Exam: Soft, Normal Bowel Sounds. absent: Tenderness, Diminished Bowel Sounds, Hypoactive Bowel Sounds - Extremities Exam Extremities Exam: Normal Capillary Refill, Normal Inspection - Neurological Exam Neurological Exam: Alert, Awake, Oriented x3 - Psychiatric Exam Psychiatric exam: Normal Affect, Normal Mood - Skin Skin Exam: Dry, Intact, Normal Color, Warm Assessment and Plan - Assessment and Plan (Free Text) Assessment: (1) Cervical spine fracture Assessment & Plan: consult Neuro- Dr. Garcia- Followup outpatient consult Neurosurgery- Dr. Cruz- Continue [place] collar for 6 weeks, followup outpatient and will need repeat CT scan outpatient Head CT- 12/01/16- Hematoma in left lateral scalp. Severe chronic microvascular ischemic change (Please see full report) Head CT- 12/02/16- No intracranial hemorrhage. No changes from previous CT. Cervical CT- C7 Fracture involving the right lamina, superior to T3 facet, pedicle and superior posterior vertebral body EEG- normal EEG of awake and drowsy adult Patient is to be discharged to [facility] [place] pending authorization. Status: Acute (2) HTN (hypertension) Assessment & Plan: Cozaar 100mg PO Daily HCTZ 12.5mg PO Daily Status: Acute (3) Urinary retention Assessment & Plan: Dr. Gabriel consulted. Zaidi catheter in place. Patient instructed to followup with urologist outpatient upon discharge Status: Acute (4) Prophylactic measure Assessment & Plan: Protonix 40mg PO Daily SCDs Status: Acute All medical management as per Dr. Haddad Patient is to be discharged to [place] for rehab, as per Dr. Haddad <Aliya Haddad S - Last Filed: 12/05/16 19:04> Objective - Vital Signs/Intake and Output Vital Signs (last 24 hours): Temp Pulse Resp BP Pulse Ox 98.6 F 84 20 107/65 96 12/05/16 15:38 12/05/16 15:38 12/05/16 15:38 12/05/16 15:38 12/05/16 15:38 Intake and Output: 12/05/16 12/06/16 18:59 06:59 Intake Total 450 Output Total 350 Balance 100 - Medications Medications: Current Medications Alprazolam (Xanax) 0.5 mg PO HS [facility] Last Admin: 12/04/16 22:17 Dose: 0.5 mg Bisacodyl (Dulcolax) 5 mg PO DAILY [facility] Stop: 12/06/16 10:01 Last Admin: 12/05/16 10:36 Dose: 5 mg Ciprofloxacin (Cipro) 250 mg PO BID [facility] Last Admin: 12/05/16 17:42 Dose: 250 mg Gabapentin (Neurontin) 300 mg PO BID [facility] Last Admin: 12/05/16 17:43 Dose: 300 mg Hydrochlorothiazide (Microzide) 12.5 mg PO DAILY [facility] Last Admin: 12/05/16 09:46 Dose: 12.5 mg Hydromorphone HCl (Dilaudid) 1 mg IVP Q8H PRN PRN Reason: Pain, moderate (4-7) Last Admin: 12/05/16 15:49 Dose: 1 mg Losartan Potassium (Cozaar) 100 mg PO DAILY [facility] Last Admin: 12/05/16 09:45 Dose: 100 mg Multivitamins (Hexavitamin) 1 tab PO DAILY [facility] Last Admin: 12/05/16 09:46 Dose: 1 tab Pantoprazole Sodium (Protonix Ec Tab) 40 mg PO DAILY [facility] Last Admin: 12/05/16 09:45 Dose: 40 mg Polyethylene Glycol (Miralax) 17 gm PO DAILY [facility] Stop: 12/06/16 10:01 Last Admin: 12/05/16 13:36 Dose: Not Given Thiamine HCl (Vitamin B1 Tab) 100 mg PO DAILY [facility] Last Admin: 12/05/16 09:45 Dose: 100 mg - Labs Labs: 12/05/16 06:05 12/05/16 06:05 Attending/Attestation - Attestation I have personally seen and examined this patient.: Yes I have fully participated in the care of the patient.: Yes I have reviewed all pertinent clinical information, including history, physical exam and plan: Yes Notes (Text): 12/05/16 19:03 case seen and discussed with staff and resident mx as discussed..
[2016-12-05 15:40] VITALS: BP 107/65; RESP 20; TEMP 98.6; O2SAT 96
--- NOTE | 2016-12-05 15:41 | CP.PCM.PN ---
Subjective - Date & Time of Evaluation Date of Evaluation: 12/05/16 Time of Evaluation: 11:00 - Subjective Subjective: Alert, orientedx3, NAD. Objective - Vital Signs/Intake and Output Vital Signs (last 24 hours): Temp Pulse Resp BP Pulse Ox 98.3 F 84 17 111/71 95 12/05/16 07:05 12/05/16 09:44 12/05/16 07:05 12/05/16 09:44 12/05/16 07:05 Intake and Output: 12/05/16 12/05/16 06:59 18:59 Intake Total 450 Output Total 1300 350 Balance -1300 100 - Medications Medications: Current Medications Alprazolam (Xanax) 0.5 mg PO HS [facility] Last Admin: 12/04/16 22:17 Dose: 0.5 mg Bisacodyl (Dulcolax) 5 mg PO DAILY [facility] Stop: 12/06/16 10:01 Last Admin: 12/05/16 10:36 Dose: 5 mg Ciprofloxacin (Cipro) 250 mg PO BID [facility] Last Admin: 12/05/16 09:45 Dose: 250 mg Gabapentin (Neurontin) 300 mg PO BID [facility] Last Admin: 12/05/16 09:45 Dose: 300 mg Hydrochlorothiazide (Microzide) 12.5 mg PO DAILY [facility] Last Admin: 12/05/16 09:46 Dose: 12.5 mg Hydromorphone HCl (Dilaudid) 1 mg IVP Q8H PRN PRN Reason: Pain, moderate (4-7) Last Admin: 12/05/16 08:27 Dose: 1 mg Losartan Potassium (Cozaar) 100 mg PO DAILY [facility] Last Admin: 12/05/16 09:45 Dose: 100 mg Multivitamins (Hexavitamin) 1 tab PO DAILY [facility] Last Admin: 12/05/16 09:46 Dose: 1 tab Pantoprazole Sodium (Protonix Ec Tab) 40 mg PO DAILY [facility] Last Admin: 12/05/16 09:45 Dose: 40 mg Polyethylene Glycol (Miralax) 17 gm PO DAILY [facility] Stop: 12/06/16 10:01 Last Admin: 12/05/16 13:36 Dose: Not Given Thiamine HCl (Vitamin B1 Tab) 100 mg PO DAILY [facility] Last Admin: 12/05/16 09:45 Dose: 100 mg - Labs Labs: 12/05/16 06:05 12/05/16 06:05 Assessment and Plan - Assessment and Plan (Free Text) Assessment: Patient is seen and examined. Alert, denies any complaints, no acute distress. D /W DR Bienvenido Haddad, [facility]. To continue to use the [place] [facility] for 6 weeks and f/u with DR Haji in 6 weeks. Continue mohr catheter , to be followed up by as outpatient.
--- NOTE | 2016-12-05 18:50 | CP.PCM.PN ---
Subjective - Date & Time of Evaluation Date of Evaluation: 12/05/16 Time of Evaluation: 18:20 - Subjective Subjective: pt clinically same s/p Dr Lucio and Dr Burkett Objective - Vital Signs/Intake and Output Vital Signs (last 24 hours): Temp Pulse Resp BP Pulse Ox 98.6 F 84 20 107/65 96 12/05/16 15:38 12/05/16 15:38 12/05/16 15:38 12/05/16 15:38 12/05/16 15:38 Intake and Output: 12/05/16 12/05/16 06:59 18:59 Intake Total 450 Output Total 1300 350 Balance -1300 100 - Medications Medications: Current Medications Alprazolam (Xanax) 0.5 mg PO HS [facility] Last Admin: 12/04/16 22:17 Dose: 0.5 mg Bisacodyl (Dulcolax) 5 mg PO DAILY [facility] Stop: 12/06/16 10:01 Last Admin: 12/05/16 10:36 Dose: 5 mg Ciprofloxacin (Cipro) 250 mg PO BID [facility] Last Admin: 12/05/16 17:42 Dose: 250 mg Gabapentin (Neurontin) 300 mg PO BID [facility] Last Admin: 12/05/16 17:43 Dose: 300 mg Hydrochlorothiazide (Microzide) 12.5 mg PO DAILY [facility] Last Admin: 12/05/16 09:46 Dose: 12.5 mg Hydromorphone HCl (Dilaudid) 1 mg IVP Q8H PRN PRN Reason: Pain, moderate (4-7) Last Admin: 12/05/16 15:49 Dose: 1 mg Losartan Potassium (Cozaar) 100 mg PO DAILY [facility] Last Admin: 12/05/16 09:45 Dose: 100 mg Multivitamins (Hexavitamin) 1 tab PO DAILY [facility] Last Admin: 12/05/16 09:46 Dose: 1 tab Pantoprazole Sodium (Protonix Ec Tab) 40 mg PO DAILY [facility] Last Admin: 12/05/16 09:45 Dose: 40 mg Polyethylene Glycol (Miralax) 17 gm PO DAILY [facility] Stop: 12/06/16 10:01 Last Admin: 12/05/16 13:36 Dose: Not Given Thiamine HCl (Vitamin B1 Tab) 100 mg PO DAILY [facility] Last Admin: 12/05/16 09:45 Dose: 100 mg - Labs Labs: 12/05/16 06:05 12/05/16 06:05 - Constitutional Appears: No Acute Distress - Head Exam Head Exam: ATRAUMATIC, NORMAL INSPECTION, NORMOCEPHALIC - Eye Exam Eye Exam: EOMI, Normal appearance, PERRL Pupil Exam: NORMAL ACCOMODATION, PERRL - ENT Exam ENT Exam: Mucous Membranes Moist - Neck Exam Neck Exam: Full ROM - Respiratory Exam Respiratory Exam: Decreased Breath Sounds - Cardiovascular Exam Cardiovascular Exam: REGULAR RHYTHM, +S1, +S2 - GI/Abdominal Exam GI & Abdominal Exam: Soft, Diminished Bowel Sounds - Rectal Exam Rectal Exam: Deferred - Neurological Exam Neurological Exam: Alert, Awake, Oriented x3 Assessment and Plan (1) Alcohol intoxication Status: Acute (2) Bronchitis Status: Acute (3) Cervical spine fracture Status: Acute (4) Dysuria Status: Acute (5) HTN (hypertension) Status: Acute (6) Head injury Status: Acute (7) Prophylactic measure Status: Acute (8) Scalp laceration Status: Acute (9) Skin irritation from shaving Status: Acute (10) Suprapubic pain Status: Acute (11) UTI (urinary tract infection) Status: Acute (12) Urinary retention Status: Acute - Assessment and Plan (Free Text) Plan: case discussed with Dr Lucio and Dr Cruz f/u outpt with Dr lucio f/u with Dr Burkett as instructed Shantell Wills f/u with Dr Harvey beckham as ordered discharge planning
== END 2016-12-05 19:50 | disposition home or self-care (01) | DRG 243 ==
LOC: C.ER 04:58 → C.9OBSV 06:23 → C.9E 09:19 → C.6T 09:47 → OBSVTOIN 12-03 16:04
PROVIDERS: ADMIT Internal Medicine Nephrology; ATTEND Internal Medicine Nephrology
DX: S12.690A Other displaced fracture of seventh cervical vertebra, initial encounter for closed fracture (principal); I10 Essential (primary) hypertension; Z91.81 History of falling; F10.129 Alcohol abuse with intoxication, unspecified; R55 Syncope and collapse; R33.9 Retention of urine, unspecified; W19.XXXA Unspecified fall, initial encounter

== ENCOUNTER 2017-07-26 16:06 | Emergency (ER) | payer MEDICAID, OTHER ==
[2017-07-26 16:18] VITALS: BMI 26.5
[2017-07-26 16:19] VITALS: O2SAT 98
[2017-07-26 17:45] LABS: RBC URINE < 1 /hpf (0-3); URINE BILIRUBIN NEGATIVE (NEGATIVE); URINE BLOOD NEGATIVE (NEGATIVE); URINE COLOR Straw (YELLOW); URINE GLUCOSE (UA) NORMAL (Normal); URINE KETONE NEGATIVE (NEGATIVE); URINE LEUKOCYTE ESTERASE NEG Leu/uL (Negative); URINE PROTEIN NEGATIVE (NEGATIVE); URINE UROBILINOGEN NORMAL mg/dL (0.2-1.0)
[2017-07-26 18:40] LABS: ALB/GLOB RATIO 1.1 (1.0-2.1); ALKALINE PHOSPHATASE 61 U/L (38-126); ALT/SGPT 38 U/L (9-52); AST/SGOT 40 U/L (14-36); BILIRUBIN,TOTAL 0.8 mg/dL (0.2-1.3); BLOOD UREA NITROGEN 8 mg/dL (7-17); CALCIUM 8.7 mg/dl (8.6-10.4); CARBON DIOXIDE 27 mmol/L (22-30); CHLORIDE 102 mmol/L (98-107); GFR AFRICAN-AMERICAN > 60; GLUCOSE,RANDOM 100 mg/dL (65-105); POTASSIUM 3.7 mmol/L (3.6-5.2); SODIUM 137 mmol/L (132-148); TOTAL PROTEIN 7.6 g/dL (6.3-8.3)
--- NOTE | 2017-07-26 19:16 | C.PDOC ---
History Of Present Illness 71 y/o female hx of urinary retention presents to the ED c/o urinary retention since last night . The patient denies nausea, vomiting, dizziness, headaches, and fever. The patient states that there is no change in her medication. Chief Complaint (Nursing): Female Genitourinary History Per: Patient History/Exam Limitations: no limitations Onset/Duration Of Symptoms: Days Current Symptoms Are (Timing): Still Present Associated Symptoms: denies: Fever, Chills, Nausea, Vomiting, Diarrhea, Loss Of Appetite, Constipation Recent travel outside of the [place]: No Additional History Per: Patient Past Medical History Reviewed: Historical Data, Nursing Documentation, Vital Signs Vital Signs: Last Vital Signs Temp 98.0 F 07/26/17 18:45 Pulse 86 07/26/17 20:53 Resp 20 07/26/17 20:53 BP 118/72 07/26/17 20:53 Pulse Ox 98 07/26/17 20:53 - Medical History PMH: Anxiety, Depression, HTN - [facility] Procedures INSERT INDWELLING CATH (05/19/15) Family History: States: No Known Family Hx - Social History Hx Tobacco Use: No Hx Alcohol Use: Yes Hx Substance Use: No - Immunization History Hx Tetanus Toxoid Vaccination: No Hx Influenza Vaccination: Yes Hx Pneumococcal Vaccination: No Review Of Systems Except As Marked, All Systems Reviewed And Found Negative. Constitutional: Negative for: Fever, Chills Cardiovascular: Negative for: Chest Pain Respiratory: Negative for: Cough, Shortness of Breath Gastrointestinal: Negative for: Nausea, Vomiting, Abdominal Pain, Constipation, Melena Genitourinary: Positive for: Other (urinary retention since last night ). Negative for: Dysuria Skin: Negative for: Rash Neurological: Negative for: Dizziness Physical Exam - Physical Exam Appears: Non-toxic, No Acute Distress, Other (unremarkable) Skin: Warm, Dry, No Diaphoretic, No Rash Head: Atraumatic, Normacephalic Eye(s): bilateral: PERRL Oral Mucosa: Moist Neck: Supple Chest: Symmetrical Cardiovascular: Rhythm Regular Respiratory: Normal Breath Sounds, No Rales, No Rhonchi, No Wheezing Gastrointestinal/Abdominal: Soft, No Tenderness, No Guarding, No Rebound Extremity: Normal ROM, Capillary Refill (2<sec.) Neurological/Psych: Oriented x3, Normal Speech, Normal Cognition Gait: Steady ED Course And Treatment - Laboratory Results Result Diagrams: 07/26/17 18:24 07/26/17 18:24 O2 Sat by Pulse Oximetry: 98 Medical Decision Making Medical Decision Making: UA, Blood work, IV fluids, urine culture, and Urinary catheter Insertion was administered. Disposition - Disposition Referrals: Rishabh Ritchie MD [Staff Provider] - Disposition: HOME/ ROUTINE Disposition Time: 19:20 Condition: IMPROVED Additional Instructions: Thank you for letting us take care of you today. The emergency medical care you received today was directed at your acute symptoms. If you were prescribed any medication, please fill it and take as directed. It may take several days for your symptoms to resolve. Return to the Emergency Department if your symptoms worsen, do not improve, or if you have any other problems. Please contact your doctor or call one of the physicians/clinics you have been referred to that are listed on the Patient Visit Information form that is included in your discharge packet. Bring any paperwork you were given at discharge with you along with any medications you are taking to your follow up visit. Our treatment cannot replace ongoing medical care by a primary care provider (PCP) outside of the emergency department. Thank you for allowing the [facility] team to be part of your care today. Follow up with the urologist, Dr. Ritchie, in 2 days for further evaluation and treatment. Prescriptions: Tamsulosin [Flomax] 0.4 mg PO DAILY #7 cap Instructions: Zaidi Catheter Placement and Care (ED), Acute Urinary Retention in Women (ED), Urinary Leg Bag (GEN) Forms: [employer] (Bolivian) - Clinical Impression Clinical Impression: Urinary retention - Scribe Statement The provider has reviewed the documentation as recorded by the Scribrolo Jones All medical record entries made by the Scribe were at my direction and personally dictated by me. I have reviewed the chart and agree that the record accurately reflects my personal performance of the history, physical exam, medical decision making, and the department course for this patient. I have also personally directed, reviewed, and agree with the discharge instructions and disposition.
[2017-07-26 19:26] LABS: BASO % 0.2 % (0.0-2.0); HEMATOCRIT 36.2 % (34.0-47.0); LYMPH # 0.7 K/uL (1.0-4.3); LYMPH % 10.3 % (20.0-40.0); MEAN CELL VOLUME 86.4 fL (81.0-99.0); MEAN CORPUSCULAR HEMOGLOBIN 29.6 pg (27.0-31.0); MEAN CORPUSCULAR HGB CONC 34.2 g/dL (33.0-37.0); MONO # 0.5 K/uL (0.0-0.8); NRBC % 0.1 % (0.0-2.0); RED CELL DISTRIBUTION WIDTH 13.3 % (11.5-14.5); WHITE BLOOD COUNT 6.5 K/uL (4.8-10.8)
[2017-07-26 20:00] VITALS: TEMP 98
[2017-07-26 20:56] VITALS: BP 118/72; PULSE 86; RESP 20
== END 2017-07-26 20:53 | disposition home or self-care (01) ==
LOC: C.ER 16:06
DX: R33.9 Retention of urine, unspecified (principal); I10 Essential (primary) hypertension

== ENCOUNTER 2017-07-28 11:04 | Emergency (ER) | payer OTHER ==
[2017-07-28 11:04] VITALS: BMI 26.5
[2017-07-28 11:15] VITALS: BP 133/77; PULSE 94; RESP 18; TEMP 97.8; O2SAT 99
--- NOTE | 2017-07-28 14:36 | C.PDOC ---
History Of Present Illness 71 y/o female presents to ED requesting for Zaidi to be removed. Patient had Zaidi placed in 2 days ago at ED for urinary retention and states she called Urologist office but won't have appointment until 2-3 weeks and cannot wait as per patient. Patient denies fever, chills, nausea, vomiting, back pain or any other complaints at this time. Chief Complaint (Nursing): Female Genitourinary History Per: Patient History/Exam Limitations: no limitations Onset/Duration Of Symptoms: Days Current Symptoms Are (Timing): Still Present Past Medical History Reviewed: Historical Data, Nursing Documentation, Vital Signs Vital Signs: Last Vital Signs Temp 97.8 F 07/28/17 11:12 Pulse 94 H 07/28/17 11:12 Resp 18 07/28/17 11:12 BP 133/77 07/28/17 11:12 Pulse Ox 99 07/28/17 14:37 - Medical History PMH: Anxiety, Depression, HTN Surgical History: No Surg Hx - [facility] Procedures INSERT INDWELLING CATH (05/19/15) Family History: States: No Known Family Hx - Social History Hx Tobacco Use: No Hx Alcohol Use: Yes Hx Substance Use: No - Immunization History Hx Tetanus Toxoid Vaccination: No Hx Influenza Vaccination: Yes Hx Pneumococcal Vaccination: No Review Of Systems Constitutional: Negative for: Fever, Chills Cardiovascular: Negative for: Chest Pain Gastrointestinal: Negative for: Nausea, Vomiting Genitourinary: Negative for: Dysuria, Hematuria Musculoskeletal: Negative for: Back Pain Skin: Negative for: Rash Neurological: Negative for: Weakness, Numbness Physical Exam - Physical Exam Appears: Non-toxic, No Acute Distress Skin: Normal Color, Warm, Dry, No Rash Head: Atraumatic, Normacephalic Eye(s): bilateral: Normal Inspection Oral Mucosa: Moist Neck: Supple Chest: Symmetrical Cardiovascular: Rhythm Regular Respiratory: Normal Breath Sounds, No Rales, No Rhonchi, No Wheezing Gastrointestinal/Abdominal: Soft, No Tenderness, No Guarding, No Rebound Back: No CVA Tenderness, No Paraspinal Tenderness Extremity: Normal ROM, Capillary Refill (<2 seconds) Neurological/Psych: Oriented x3, Normal Motor, Normal Sensation ED Course And Treatment O2 Sat by Pulse Oximetry: 99 (RA) Pulse Ox Interpretation: Normal Medical Decision Making Medical Decision Making: Patient eloped prior to evaluation of Urologist Disposition - Disposition Referrals: Rishabh Ritchie MD [Staff Provider] - Disposition: HOME/ ROUTINE Disposition Time: 12:45 Condition: GOOD Additional Instructions: Thank you for letting us take care of you today. The emergency medical care you received today was directed at your acute symptoms. If you were prescribed any medication, please fill it and take as directed. It may take several days for your symptoms to resolve. Return to the Emergency Department if your symptoms worsen, do not improve, or if you have any other problems. Please contact your doctor or call one of the physicians/clinics you have been referred to that are listed on the Patient Visit Information form that is included in your discharge packet. Bring any paperwork you were given at discharge with you along with any medications you are taking to your follow up visit. Our treatment cannot replace ongoing medical care by a primary care provider (PCP) outside of the emergency department. Thank you for allowing the [facility] team to be part of your care today. Follow up with the urologist as scheduled. Instructions: Acute Urinary Retention in Women (ED) Forms: [employer] (Cambodian) - Clinical Impression Clinical Impression: Encounter for Zaidi catheter removal - Scribe Statement The provider has reviewed the documentation as recorded by the Scribe Deanne Reyes All medical record entries made by the Domoniqueibe were at my direction and personally dictated by me. I have reviewed the chart and agree that the record accurately reflects my personal performance of the history, physical exam, medical decision making, and the department course for this patient. I have also personally directed, reviewed, and agree with the discharge instructions and disposition.
== END 2017-07-28 12:49 | disposition home or self-care (01) ==
LOC: C.ER 11:04
DX: Z46.6 Encounter for fitting and adjustment of urinary device (principal); I10 Essential (primary) hypertension

== ENCOUNTER 2018-01-25 06:45 | Emergency (ER) | payer MEDICAID, OTHER ==
[2018-01-25 06:50] VITALS: BMI 27.4
[2018-01-25 07:52] LABS: BASO % 0.6 % (0.0-2.0); EOS % 0.3 % (0.0-4.0); HEMOGLOBIN 12.2 g/dL (11.0-16.0); LYMPH # 0.9 K/uL (1.0-4.3); LYMPH % 23.9 % (20.0-40.0); MEAN CELL VOLUME 87.8 fL (81.0-99.0); MEAN CORPUSCULAR HEMOGLOBIN 30.8 pg (27.0-31.0); MEAN PLATELET VOLUME 8.8 fL (7.2-11.7); MONO # 0.4 K/uL (0.0-0.8); MONO % 9.8 % (0.0-10.0); NEUT # 2.6 K/uL (1.8-7.0); NEUT % 65.4 % (50.0-75.0); RBC 3.95 Mil/uL (3.80-5.20); RED CELL DISTRIBUTION WIDTH 14.4 % (11.5-14.5); WHITE BLOOD COUNT 3.9 K/uL (4.8-10.8)
[2018-01-25 08:06] LABS: ALB/GLOB RATIO 0.9 (1.0-2.1); ALBUMIN 3.9 g/dL (3.5-5.0); ALT/SGPT 21 U/L (9-52); AST/SGOT 53 U/L (14-36); BLOOD UREA NITROGEN 9 mg/dL (7-17); GFR AFRICAN-AMERICAN > 60; GFR NON-AFRICAN AMERICAN > 60; LIPASE 91 U/L (23-300)
[2018-01-25 08:08] LABS: URINE BILIRUBIN NEGATIVE (NEGATIVE); URINE BLOOD NEGATIVE (NEGATIVE); URINE CLARITY Clear (Clear); URINE COLOR Straw (YELLOW); URINE GLUCOSE (UA) NORMAL (Normal); URINE LEUKOCYTE ESTERASE NEG Leu/uL (Negative); URINE PROTEIN NEGATIVE (NEGATIVE); URINE UROBILINOGEN NORMAL mg/dL (0.2-1.0)
[2018-01-25] MEDS ORDERED: Iohexol 300 100 ML IJ ONE (08:37)
--- NOTE | 2018-01-25 10:18 | CT ---
PROCEDURE: CT Abdomen and Pelvis with intravenous contrast HISTORY: Abdominal pain COMPARISON: 05/20/2015 TECHNIQUE: Multiple contiguous axial images were performed through the abdomen and pelvis with the use of intravenous contrast. Subsequently, sagittal and coronal reformatted images were obtained. Radiation dose: Total exam DLP = 509 mGy-cm. This CT exam was performed using one or more of the following dose reduction techniques: Automated exposure control, adjustment of the mA and/or kV according to patient size, and/or use of iterative reconstruction technique. FINDINGS: LOWER THORAX: Bibasilar atelectasis. LIVER: Unremarkable. No gross lesion or ductal dilatation. GALLBLADDER AND BILE DUCTS: Unremarkable. PANCREAS: Unremarkable. No gross lesion or ductal dilatation. SPLEEN: Unremarkable. Splenule. ADRENALS: Unremarkable. No mass. KIDNEYS AND URETERS: Mild fullness of the left renal collecting system and ureter with left perinephric fluid and fat stranding. No gross calculi. Mild perinephric fat stranding and fluid with mild fullness of the right renal collecting system and ureter. No gross calculi. VASCULATURE: Calcification and plaque within the aorta. BOWEL: Extensive sigmoid diverticulosis with some probable mild chronic thickening of the sigmoid colon. Clinical correlation. Small hiatal hernia. Few mildly distended loops of small bowel in the upper and mid abdomen. APPENDIX: Not well visualized. PERITONEUM: Calcified phleboliths in the pelvis. LYMPH NODES: Few shotty para-aortic, mesenteric, and inguinal lymph nodes. BLADDER: Zaidi catheter in the urinary bladder. Suggestion of some mild urinary bladder wall thickening. REPRODUCTIVE: Unremarkable. BONES: Degenerative changes in the spine and hips. OTHER FINDINGS: None. IMPRESSION: 1. Extensive sigmoid diverticulosis with some probable mild chronic thickening of the sigmoid colon. Clinical correlation. 2. Small hiatal hernia. 3. Few mildly distended loops of small bowel in the upper and mid abdomen. 4. Mild fullness of the left renal collecting system and ureter with left perinephric fluid and fat stranding. No gross calculi. 5. Mild perinephric fat stranding and fluid with mild fullness of the right renal collecting system and ureter. No gross calculi. 6. Zaidi catheter in the urinary bladder. Suggestion of some mild urinary bladder wall thickening. Additional findings as above.
[2018-01-25 10:38] VITALS: BP 157/77; PULSE 81; RESP 16; TEMP 98.7; O2SAT 96
--- NOTE | 2018-01-25 11:25 | C.PDOC ---
History Of Present Illness 72 year old female presents to ED for evaluation of lower abdominal pain and decreased urination since last night. Pt states she has had similar symptoms once in the past which required mohr placement. Denies n/v/d, blood in urine/ stool, fever, or any other symptoms at this time. Chief Complaint (Nursing): Female Genitourinary History Per: Patient History/Exam Limitations: no limitations Onset/Duration Of Symptoms: Days Current Symptoms Are (Timing): Still Present Quality Of Discomfort: "Pain" Associated Symptoms: Urinary Symptoms. denies: Loss Of Appetite, Back Pain, Chest Pain, Constipation Alleviating Factors: None Recent travel outside of the [place]: No Additional History Per: Patient Abnormal Vaginal Bleeding: No Past Medical History Reviewed: Historical Data, Nursing Documentation, Vital Signs Vital Signs: Last Vital Signs Temp 98.7 F 01/25/18 10:38 Pulse 81 01/25/18 10:38 Resp 16 01/25/18 10:38 BP 157/77 H 01/25/18 10:38 Pulse Ox 96 01/25/18 11:31 - Medical History PMH: Anxiety, Depression, HTN - [facility] Procedures INSERT INDWELLING CATH (05/19/15) Family History: States: Unknown Family Hx - Social History Hx Tobacco Use: No Hx Alcohol Use: Yes Hx Substance Use: No - Immunization History Hx Tetanus Toxoid Vaccination: No Hx Influenza Vaccination: Yes Hx Pneumococcal Vaccination: No Review Of Systems Except As Marked, All Systems Reviewed And Found Negative. Constitutional: Negative for: Fever, Chills Cardiovascular: Negative for: Chest Pain, Palpitations Gastrointestinal: Positive for: Abdominal Pain. Negative for: Nausea, Vomiting , Diarrhea, Constipation, Melena, Hematochezia Genitourinary: Positive for: Other (decreased urination). Negative for: Frequency, Hematuria, Vaginal Discharge Neurological: Negative for: Headache, Dizziness Physical Exam - Physical Exam Appears: Non-toxic, No Acute Distress Skin: Normal Color, Warm, Dry Head: Atraumatic, Normacephalic Eye(s): bilateral: Normal Inspection Oral Mucosa: Moist Cardiovascular: Rhythm Regular Respiratory: Normal Breath Sounds, No Rales, No Rhonchi, No Wheezing Gastrointestinal/Abdominal: Soft, Tenderness (suprapubic), No Guarding, No Rebound Extremity: Normal ROM Neurological/Psych: Oriented x3, Normal Speech ED Course And Treatment - Laboratory Results Result Diagrams: 01/25/18 07:49 01/25/18 07:49 O2 Sat by Pulse Oximetry: 96 (RA) Pulse Ox Interpretation: Normal Medical Decision Making Medical Decision Making: Blood work, UA, Abd & Pelvis CT ordered and reviewed. Mohr catheter was placed. On re-evaluation, patient is resting comfortably, no acute distress. Pt is being discharged home with instructions to follow up wit PMD. Disposition - Disposition Referrals: Karmen Ritchie MD [Staff Provider] - Disposition: HOME/ ROUTINE Disposition Time: 10:20 Condition: IMPROVED Additional Instructions: Thank you for letting us take care of you today. The emergency medical care you received today was directed at your acute symptoms. If you were prescribed any medication, please fill it and take as directed. It may take several days for your symptoms to resolve. Return to the Emergency Department if your symptoms worsen, do not improve, or if you have any other problems. Please contact your doctor or call one of the physicians/clinics you have been referred to that are listed on the Patient Visit Information form that is included in your discharge packet. Bring any paperwork you were given at discharge with you along with any medications you are taking to your follow up visit. Our treatment cannot replace ongoing medical care by a primary care provider (PCP) outside of the emergency department. Thank you for allowing the [facility] team to be part of your care today. Follow up with Dr. Ritchie, urology, tomorrow for re-evaluation and further management. [place] por dejarnos atenderlo hoy. La atencin mdica de emergencia que recibi hoy estaba dirigida a qian sntomas agudos. Si le prescribieron algn medicamento, llnelo y tome segn las indicaciones. Qian sntomas pueden tardar varios escudero en resolverse. Regrese al Departamento de Emergencia si qian s ntomas empeoran, no mejoran o si tiene algn otro problema. Comunquese con still mdico o llame a gene de los mdicos / clnicas a los que gayle sido referido que figura en el formulario de Informacin de visita del paciente que se incluye en still paquete de latrice. Traiga todos los documentos que recibi al momento del latrice junto con los medicamentos que est tomando en still visita de seguimiento. Nuestro tratamiento no puede reemplazar la atencin mdica en curso por parte de un proveedor de atencin primaria (PCP) fuera del departamento de emergencias. [place] por permitir que el equipo de [facility] sea parte de still cuidado hoy. Uma un seguimiento con el Dr. Ritchie, urologa, maana para la reevaluacin y la administracin adicional. Prescriptions: Ciprofloxacin [Cipro] 500 mg PO BID #14 tab Ibuprofen [Motrin] 600 mg PO Q6 PRN #20 tab PRN Reason: Pain, Moderate (4-7) Tamsulosin [Flomax] 0.4 mg PO DAILY #7 cap Instructions: How to Care for Your Mohr Catheter, Female Forms: Gen Discharge Inst Lebanese, [employer] (Lebanese) Print Language: SLOVENIAN - Clinical Impression Clinical Impression: Urinary retention - Scribe Statement The provider has reviewed the documentation as recorded by the Scribe Ary Haddad All medical record entries made by the Scribe were at my direction and personally dictated by me. I have reviewed the chart and agree that the record accurately reflects my personal performance of the history, physical exam, medical decision making, and the department course for this patient. I have also personally directed, reviewed, and agree with the discharge instructions and disposition.
== END 2018-01-25 11:06 | disposition home or self-care (01) ==
LOC: C.ER 06:45
DX: R33.9 Retention of urine, unspecified (principal)
CPT/HCPCS: 74177; 80053; 81001; 83690; 85025; 87086; 99285; Q9967

== ENCOUNTER 2018-01-28 11:30 | Emergency (ER) | payer OTHER ==
[2018-01-28 11:31] VITALS: BMI 27.4
[2018-01-28 12:03] VITALS: RESP 16
--- NOTE | 2018-01-28 12:29 | C.PDOC ---
History Of Present Illness 72yo female with history of urinary retention with a mohr catheter placed on 01/25, presents to ER requesting removal of the catheter. Patient is pending a urologist evaluation on 02/03 but states she does not want to leave the catheter on. She states she is concerned about an infection. otherwise, she denies any fever, chills, dysuira, or hematuria. No other complaints. Time Seen by Provider: 01/28/18 12:25 Chief Complaint (Nursing): Female Genitourinary History Per: Patient History/Exam Limitations: no limitations Onset/Duration Of Symptoms: Days (3) Current Symptoms Are (Timing): Still Present Associated Symptoms: denies: Fever, Chills, Urinary Symptoms Past Medical History Reviewed: Historical Data, Nursing Documentation, Vital Signs Vital Signs: Last Vital Signs Temp 98.4 F 01/28/18 11:57 Pulse 80 01/28/18 11:57 Resp 16 01/28/18 11:57 BP 139/83 01/28/18 11:57 Pulse Ox 97 01/28/18 12:29 - Medical History PMH: Anxiety, Depression, HTN Surgical History: No Surg Hx - [facility] Procedures INSERT INDWELLING CATH (05/19/15) Family History: States: No Known Family Hx, Unknown Family Hx - Social History Hx Tobacco Use: No Hx Alcohol Use: Yes Hx Substance Use: No - Immunization History Hx Tetanus Toxoid Vaccination: No Hx Influenza Vaccination: Yes Hx Pneumococcal Vaccination: No Review Of Systems Except As Marked, All Systems Reviewed And Found Negative. Constitutional: Negative for: Fever, Chills Genitourinary: Positive for: Other (mohr cath). Negative for: Dysuria, Frequency, Hematuria Physical Exam - Physical Exam Appears: Non-toxic, No Acute Distress Skin: Normal Color Head: Normacephalic Eye(s): bilateral: Normal Inspection Neck: Supple Chest: Symmetrical Cardiovascular: Rhythm Regular Respiratory: Normal Breath Sounds Gastrointestinal/Abdominal: Normal Exam, Soft, No Tenderness Extremity: Normal ROM, No Pedal Edema Neurological/Psych: Oriented x3, Normal Speech, Normal Cognition ED Course And Treatment O2 Sat by Pulse Oximetry: 97 (RA) Pulse Ox Interpretation: Normal Progress - Re-Evaluation Re-evaluation Note: 01/28/18 12:28 Patient informed of potential for recurrence of symptoms. She reports verbal understanding and is requesting the catheter to be removed. - Data Reviewed Data Reviewed: Old records Disposition Counseled Patient/Family Regarding: Diagnosis, Need For Followup - Disposition Referrals: YOUR,UROLOGIST [Other] Disposition: HOME/ ROUTINE Disposition Time: 12:28 Condition: GOOD Additional Instructions: YOU HAVE BEEN ADVISED OF POTENTIAL FOR RECURRENT SYMPTOMS. FOLLOW UP WITH YOUR UROLOGIST SCHEDULED. RETURN IF WORSENING SYMPTOMS. CONTINUE CURRENT MEDICINES PRESCRIBED. Forms: [facility] (Vietnamese), General Discharge Instructions - Clinical Impression Clinical Impression: Encounter for Mohr catheter removal - Scribe Statement The provider has reviewed the documentation as recorded by the Scribe (Kristin Lizarraga) Provider Attestation: All medical record entries made by the Scribe were at my direction and personally dictated by me. I have reviewed the chart and agree that the record accurately reflects my personal performance of the history, physical exam, medical decision making, and the department course for this patient. I have also personally directed, reviewed, and agree with the discharge instructions and disposition.
[2018-01-28 12:33] VITALS: BP 141/83; PULSE 76; TEMP 97.9
[2018-01-28 12:35] VITALS: O2SAT 97
== END 2018-01-28 13:07 | disposition home or self-care (01) ==
LOC: C.ER 11:30
DX: Z46.6 Encounter for fitting and adjustment of urinary device (principal)

== ENCOUNTER 2018-04-04 15:28 | Inpatient (IN) | payer OTHER ==
[2018-04-04 15:28] VITALS: BMI 27.4
[2018-04-04] MEDS ORDERED: Sodium Chloride 0.9% 500 ML IV ONE (16:12)
[2018-04-04 16:32] LABS: BASO % 0.3 % (0.0-2.0); EOS # 0.1 K/uL (0.0-0.7); EOS % 0.7 % (0.0-4.0); HEMOGLOBIN 12.6 g/dL (11.0-16.0); LYMPH # 0.8 K/uL (1.0-4.3); LYMPH % 10.4 % (20.0-40.0); MEAN CELL VOLUME 88.8 fL (81.0-99.0); MEAN CORPUSCULAR HEMOGLOBIN 30.7 pg (27.0-31.0); MEAN CORPUSCULAR HGB CONC 34.6 g/dL (33.0-37.0); MEAN PLATELET VOLUME 10.1 fL (7.2-11.7); MONO # 0.7 K/uL (0.0-0.8); MONO % 8.3 % (0.0-10.0); NEUT # 6.5 K/uL (1.8-7.0); NEUT % 80.3 % (50.0-75.0); RBC 4.11 Mil/uL (3.80-5.20); WHITE BLOOD COUNT 8.1 K/uL (4.8-10.8)
[2018-04-04 16:40] LABS: ALBUMIN 4.2 g/dL (3.5-5.0); CALCIUM 9.5 mg/dl (8.6-10.4); GFR AFRICAN-AMERICAN > 60; GFR NON-AFRICAN AMERICAN > 60
[2018-04-04 16:46] LABS: ALT/SGPT 18 U/L (9-52); AST/SGOT 36 U/L (14-36); BLOOD UREA NITROGEN 11 mg/dL (7-17)
[2018-04-04 17:27] LABS: URINE BACTERIA MANY (<OCC); URINE BILIRUBIN NEGATIVE (NEGATIVE); URINE BLOOD 1+ (NEGATIVE); URINE CLARITY Turbid (Clear); URINE COLOR Yellow (YELLOW); URINE GLUCOSE (UA) NORMAL (Normal); URINE LEUKOCYTE ESTERASE 3+ Leu/uL (Negative); URINE PROTEIN 2+ mg/dL (NEGATIVE); URINE UROBILINOGEN NORMAL mg/dL (0.2-1.0)
[2018-04-04] MEDS ORDERED: cefTRIAXone IV 1 gm in Dextros 50 ML IVPB ONE (17:32)
--- NOTE | 2018-04-04 17:41 | C.PDOC ---
Time Seen by Provider: 04/04/18 15:59 Chief Complaint (Nursing): Female Genitourinary History Per: Patient, Family Onset/Duration Of Symptoms: Days Current Symptoms Are (Timing): Worse Severity: Moderate Associated Symptoms: Fever, Urinary Symptoms Alleviating Factors: None Additional History Per: Prior Records Past Medical History Reviewed: Historical Data, Nursing Documentation, Vital Signs Vital Signs: Last Vital Signs Temp 99.0 F 04/04/18 15:42 Pulse 110 H 04/04/18 15:42 Resp 18 04/04/18 15:42 BP 136/74 04/04/18 15:42 Pulse Ox 95 04/04/18 17:42 - Medical History PMH: Anxiety, Depression, HTN - [facility] Procedures INSERT INDWELLING CATH (05/19/15) Family History: States: Unknown Family Hx - Social History Hx Tobacco Use: No Hx Alcohol Use: No Hx Substance Use: No - Immunization History Hx Tetanus Toxoid Vaccination: No Hx Influenza Vaccination: Yes Hx Pneumococcal Vaccination: No Review Of Systems Except As Marked, All Systems Reviewed And Found Negative. Constitutional: Positive for: Fever, Weakness, Malaise Cardiovascular: Positive for: Light Headedness. Negative for: Chest Pain Respiratory: Negative for: Cough, Shortness of Breath Gastrointestinal: Positive for: Abdominal Pain (suprapubic). Negative for: Vomiting, Diarrhea Genitourinary: Positive for: Dysuria, Incontinence, Other (Urinary retention) Neurological: Positive for: Headache (Pt had fallen and hit her head. She was admitted to [facility] and had an negative CT scan and MRI according to pt. ), Dizziness. Negative for: Weakness, Numbness, Seizures Physical Exam - Physical Exam Appears: Chronically Ill Skin: Normal Color, Warm, Dry Head: Normacephalic, Other (Healing wound on scalp) Eye(s): bilateral: PERRL, EOMI Neck: Normal ROM, Supple Cardiovascular: Rhythm Regular Respiratory: Normal Breath Sounds, No Accessory Muscle Use Gastrointestinal/Abdominal: Soft, No Tenderness Back: No CVA Tenderness Extremity: Normal ROM Neurological/Psych: Oriented x3, Normal Motor, Normal Sensation ED Course And Treatment - Laboratory Results Result Diagrams: 04/04/18 16:24 04/04/18 16:24 Lab Interpretation: Abnormal Interpretation Of Abnormal: UTI, urine C&S sent. O2 Sat by Pulse Oximetry: 95 Pulse Ox Interpretation: Normal - Radiology CXR: Interpreted by Me, Viewed By Me CXR Interpretation: Yes: No Acute Disease Progress Note: Zaidi catheter was inserted by RN with return of 250cc of very purulent urine. Progress - Interventions Interventions:: Observation, Intravenous fluid - Medications Administered Intravenous: Other (Abx) - Data Reviewed Data Reviewed: Lab, Diagnostic imaging, Old records - Patient Status Patient status: Partially improved - Continuity of Care Discussed patient case with:: Patient, Family-HIPPA compliant, ED Nurse, Covering for PMD - Patient Plan Patient Plan: Admission Disposition Discussed With DrKita: César Haddad Comment: He accepted pt on hospitalist service. Doctor Will See Patient In The: Hospital Counseled Patient/Family Regarding: Studies Performed, Diagnosis - Disposition Disposition: HOSPITALIZED Disposition Time: 17:49 Condition: FAIR - Clinical Impression Clinical Impression: Complicated urinary tract infection
[2018-04-04] MEDS ORDERED: Bacitracin 500 Units/gm Oint Foilpak UD ONE (19:19)
--- NOTE | 2018-04-04 20:56 | CP.PCM.HP ---
<Elkin Wall - Last Filed: 04/05/18 01:32> History of Present Illness - History of Present Illness History of Present Illness: 72yo F with a PMH of HTN, Depression, frequent falls and a recent admission at [facility] for urinary retention presents to the ED with complaints of frequent urination, dysuria and dizziness for 1 week. Pt feels like her bladder is very full. she denies accidents, leakage or incomplete emptying. Pt says she began to get fevers and chills for the past 3 days. Pt says the urine looks frothy. Recent past hospitalization was from a fall that resulted in a superficial occipital laceration. Pt says she fell from her dizziness. Pt says she follwed up with her PMD upon admission on Mar 27. Pt treated in ED, Pus seen in Zaidi, given Ceftriaxone. ROS: pos + Fevers chills, dizzy, dysuria, increased frequency, neck pain, headache neg- weakness, change in vision, loss of bladder control, blood in urine, dark urine, back pain, sick contacts, chest pain, palpitaions, SOB Pharmacy: [facility] PMD: Dr Randhawa PMH: HTN, Depression, falls, urinary retention ([facility] hospitaliszation ) PSx:C section, Bladder Lift? Dr Christine Urologist SocHx: denies tobacco and drugs, lives alone. Drinks 8+ beers on weekends Fam Hx: none Allerg: none Full COde Present on Admission - Present on Admission Any Indicators Present on Admission: No Review of Systems - Constitutional Constitutional: As Per HPI - EENT Eyes: As Per HPI Ears: As Per HPI Nose/Mouth/Throat: As Per HPI - Breasts Breasts: As Per HPI - Cardiovascular Cardiovascular: As Per HPI - Respiratory Respiratory: As Per HPI - Gastrointestinal Gastrointestinal: As Per HPI - Genitourinary Genitourinary: Dysuria, Urinary Frequency, Hx Renal/Bladder Calculi (stone removed by Dr Christine in past), Bladder Distension. absent: Change in Urinary Stream, Difficulty Urinating, Flank Pain, Pyuria, Urinary Urgency - Reproductive: Female Reproductive:Female: As Per HPI - Menstruation Menstruation: As Per HPI - Musculoskeletal Musculoskeletal: Neck Pain. absent: Back Pain - Integumentary Integumentary: As Per HPI - Neurological Neurological: Dizziness, Frequent Falls, Headaches, Lack of Coordination. absent: Memory Loss, Sensory Deficit, Syncope, Vertigo, Weakness - Psychiatric Psychiatric: Depression - Endocrine Endocrine: As Per HPI Past Patient History - Infectious Disease Hx of Infectious Diseases: None - Past Social History Smoking Status: Never Smoked - CARDIAC Hx Hypertension: Yes - MUSCULOSKELETAL/RHEUMATOLOGICAL Hx Musculoskeletal Disorders: Yes Hx Falls: Yes - GENITOURINARY/GYNECOLOGICAL Hx Genitourinary Disorders: Yes Hx Urinary Tract Infection: Yes - PSYCHIATRIC Hx Anxiety: Yes Hx Depression: Yes Hx Substance Use: No - SURGICAL HISTORY Hx Surgeries: Yes Other/Comment: kidney stone surgery. "bladde laser procedure" - ANESTHESIA Hx Anesthesia: Yes Hx Anesthesia Reactions: No Meds Allergies/Adverse Reactions: Allergies Allergy/AdvReac Type Severity Reaction Status Date / Time No Known Allergies Allergy Verified 01/25/18 06:50 Physical Exam - Constitutional Appears: Non-toxic, No Acute Distress, Younger Than Stated Age - Head Exam Head Exam: ATRAUMATIC, NORMAL INSPECTION - Eye Exam Eye Exam: EOMI, Normal appearance, Scleral icterus (mild bilaterally yellowing of sclera) - ENT Exam ENT Exam: Mucous Membranes Moist - Neck Exam Neck exam: Positive for: Tenderness (paraspinals bilateral) - Respiratory Exam Respiratory Exam: Clear to Auscultation Bilateral, NORMAL BREATHING PATTERN. absent: Rhonchi, Wheezes, Stridor - Cardiovascular Exam Cardiovascular Exam: RRR, +S1, +S2. absent: Diastolic murmur, Systolic Murmur - GI/Abdominal Exam GI & Abdominal Exam: Soft, Tenderness (lower central abdomen). absent: Distended - Exam Exam: Bladder Distension - Extremities Exam Extremities exam: Positive for: normal inspection, pedal pulses present. Negative for: pedal edema, tenderness - Back Exam Back exam: absent: CVA tenderness (L), CVA tenderness (R) - Neurological Exam Neurological exam: Alert, CN II-XII Intact, Oriented x3 - Psychiatric Exam Psychiatric exam: Normal Affect, Normal Mood - Skin Skin Exam: Dry, Normal Color, Warm Results - Vital Signs Recent Vital Signs: Last Vital Signs Temp 98.3 F 04/04/18 18:06 Pulse 78 04/04/18 19:53 Resp 16 04/04/18 19:53 BP 118/65 04/04/18 19:53 Pulse Ox 98 04/04/18 19:53 - Labs Result Diagrams: 04/04/18 16:24 04/04/18 16:24 Labs: Laboratory Results - last 24 hr 04/04/18 04/04/18 04/04/18 16:24 16:24 17:15 WBC 8.1 D RBC 4.11 Hgb 12.6 Hct 36.5 MCV 88.8 MCH 30.7 MCHC 34.6 RDW 13.0 Plt Count 175 MPV 10.1 Neut % (Auto) 80.3 H Lymph % (Auto) 10.4 L [place] % (Auto) 8.3 Eos % (Auto) 0.7 Baso % (Auto) 0.3 Neut # (Auto) 6.5 Lymph # (Auto) 0.8 L [place] # (Auto) 0.7 Eos # (Auto) 0.1 Baso # (Auto) 0.0 Sodium 140 Potassium 4.3 Chloride 102 Carbon Dioxide 24 Anion Gap 18 BUN 11 Creatinine 0.7 Est GFR ( Amer) > 60 Est GFR (Non-Af Amer) > 60 Random Glucose 135 H Calcium 9.5 Magnesium 1.8 Total Bilirubin 0.6 AST 36 D ALT 18 Alkaline Phosphatase 60 Troponin I < 0.0120 Total Protein 8.3 Albumin 4.2 Globulin 4.1 H Albumin/Globulin Ratio 1.0 Urine Color Yellow Urine Clarity Turbid Urine pH 6.0 Ur Specific [place] 1.008 Urine Protein 2+ H Urine Glucose (UA) Normal Urine Ketones Negative Urine Blood 1+ H Urine Nitrate Positive H Urine Bilirubin Negative Urine Urobilinogen Normal Ur Leukocyte Esterase 3+ H Urine WBC (Auto) 4563 H Urine RBC (Auto) 835 H Urine Bacteria Many H Assessment & Plan - Assessment and Plan (Free Text) Assessment: 72 yo female with a pmh of HTN, Depression, Bladder prolapse, admitted for a complicated UTI Plan: Complicated UTI -ceftriaxone 1gm IVPB -100ml/hr NS IVF -cloudy urine in bag - UA: protein 2, Blood 1, Nitrate +, Leuk Est 3, WBC 4563, RBC 835, Bacteria Many -f/u urine culture -f/u blood culture Urinary Retention -Zaidi Cath -IVF 100 ml/hr NS -Urology consulted: janice depression/insmomnia -continue home rx -xanax 0.5mg po at night -ambien 5mg po at night PPX -heparin 5000unit sc <Keswani,Kain P - Last Filed: 04/05/18 04:20> Results - Vital Signs Recent Vital Signs: Last Vital Signs Temp 98.4 F 04/05/18 00:00 Pulse 80 04/05/18 00:00 Resp 20 04/05/18 00:00 BP 148/80 04/05/18 00:00 Pulse Ox 97 04/05/18 00:00 - Labs Result Diagrams: 04/04/18 16:24 04/04/18 16:24 Labs: Laboratory Results - last 24 hr 04/04/18 04/04/18 04/04/18 16:24 16:24 17:15 WBC 8.1 D RBC 4.11 Hgb 12.6 Hct 36.5 MCV 88.8 MCH 30.7 MCHC 34.6 RDW 13.0 Plt Count 175 MPV 10.1 Neut % (Auto) 80.3 H Lymph % (Auto) 10.4 L [place] % (Auto) 8.3 Eos % (Auto) 0.7 Baso % (Auto) 0.3 Neut # (Auto) 6.5 Lymph # (Auto) 0.8 L [place] # (Auto) 0.7 Eos # (Auto) 0.1 Baso # (Auto) 0.0 Sodium 140 Potassium 4.3 Chloride 102 Carbon Dioxide 24 Anion Gap 18 BUN 11 Creatinine 0.7 Est GFR ( Amer) > 60 Est GFR (Non-Af Amer) > 60 Random Glucose 135 H Calcium 9.5 Magnesium 1.8 Total Bilirubin 0.6 AST 36 D ALT 18 Alkaline Phosphatase 60 Troponin I < 0.0120 Total Protein 8.3 Albumin 4.2 Globulin 4.1 H Albumin/Globulin Ratio 1.0 Urine Color Yellow Urine Clarity Turbid Urine pH 6.0 Ur Specific [place] 1.008 Urine Protein 2+ H Urine Glucose (UA) Normal Urine Ketones Negative Urine Blood 1+ H Urine Nitrate Positive H Urine Bilirubin Negative Urine Urobilinogen Normal Ur Leukocyte Esterase 3+ H Urine WBC (Auto) 4563 H Urine RBC (Auto) 835 H Urine Bacteria Many H Attending/Attestation - Attestation I have personally seen and examined this patient.: Yes I have fully participated in the care of the patient.: Yes I have reviewed all pertinent clinical information: Yes Notes (Text): 04/05/18 04:17 Assessment Recurrent UTI due to urinary retention, h/o prior bladder prolapse surgery. Plan Zaidi cath IV Rocephin Urology consult for w/u of urinary retention, patient may have to learn self catherterization, be prepared in case of urinary retention. DVT prophylaxis. See orders for detail.
--- NOTE | 2018-04-04 22:02 | RAD ---
Date of service: 04/04/2018 PROCEDURE: CHEST RADIOGRAPH, 1 VIEW HISTORY: Fever, dizziness COMPARISON: Comparison is made with 11/11/2015 FINDINGS: LUNGS: Clear. PLEURA: No pneumothorax or pleural fluid seen. CARDIOVASCULAR: Normal. OSSEOUS STRUCTURES: No significant abnormalities. VISUALIZED UPPER ABDOMEN: Normal. OTHER FINDINGS: None. IMPRESSION: No active disease.
[2018-04-05 00:51] VITALS: RESP 20
[2018-04-05 08:02] LABS: HEMOGLOBIN 12.9 g/dL (11.0-16.0); MEAN CELL VOLUME 90.1 fL (81.0-99.0); MEAN CORPUSCULAR HGB CONC 34.4 g/dL (33.0-37.0); MEAN PLATELET VOLUME 10.1 fL (7.2-11.7); RBC 4.16 Mil/uL (3.80-5.20); RED CELL DISTRIBUTION WIDTH 13.2 % (11.5-14.5); WHITE BLOOD COUNT 5.5 K/uL (4.8-10.8)
[2018-04-05 08:16] LABS: ALB/GLOB RATIO 0.9 (1.0-2.1); ALBUMIN 4.4 g/dL (3.5-5.0); ALT/SGPT 21 U/L (9-52); AST/SGOT 32 U/L (14-36); BLOOD UREA NITROGEN 9 mg/dL (7-17); CALCIUM 9.6 mg/dl (8.6-10.4); GFR AFRICAN-AMERICAN > 60; GFR NON-AFRICAN AMERICAN > 60
--- NOTE | 2018-04-05 14:29 | CP.PCM.PN ---
Subjective - Date & Time of Evaluation Date of Evaluation: 04/05/18 Time of Evaluation: 14:27 - Subjective Subjective: PGY-1 Medicine Progress Note for Dr. Tyson's service Patient seen and examined at bedside. Patient reports mild suprapubic pain only on palpation. Patient denies urinary frequency, dyusria, and flank pain. Patietn states her pain has improved significantly. Patient denies fevers, chills, chest pain, sob, headaches, dizziness, n/v, constipation or diarrhea. Objective - Vital Signs/Intake and Output Vital Signs (last 24 hours): Temp Pulse Resp BP Pulse Ox 98.8 F 87 20 120/72 95 04/05/18 07:48 04/05/18 07:48 04/05/18 07:48 04/05/18 07:48 04/05/18 07:48 Intake and Output: 04/05/18 04/05/18 06:59 18:59 Intake Total 480 Output Total 1500 Balance -1020 - Medications Medications: Current Medications Alprazolam (Xanax) 0.5 mg PO DAILY [facility] Heparin Sodium (Porcine) (Heparin) 5,000 units SC Q8 [facility] Last Admin: 04/05/18 05:43 Dose: Not Given Ceftriaxone Sodium 1 gm/ (Sodium Chloride) 100 mls @ 100 mls/hr IVPB DAILY [facility] PRN Reason: Protocol Last Admin: 04/05/18 10:07 Dose: 100 mls/hr Zolpidem Tartrate (Ambien) 5 mg PO HS PRN PRN Reason: Insomnia Last Admin: 04/05/18 01:38 Dose: 5 mg - Labs Labs: 04/05/18 07:52 04/05/18 07:52 - Constitutional Appears: Non-toxic, No Acute Distress - Head Exam Head Exam: NORMAL INSPECTION, NORMOCEPHALIC - Eye Exam Eye Exam: EOMI, Normal appearance. absent: Nystagmus, Scleral icterus - Respiratory Exam Respiratory Exam: Clear to Ausculation Bilateral, NORMAL BREATHING PATTERN. absent: Rales, Rhonchi, Wheezes, Respiratory Distress - Cardiovascular Exam Cardiovascular Exam: REGULAR RHYTHM, +S1, +S2. absent: Tachycardia, Murmur - GI/Abdominal Exam GI & Abdominal Exam: Soft, Tenderness, Normal Bowel Sounds. absent: Firm, Guarding Additional comments: suprapubic tenderness - Extremities Exam Extremities Exam: Normal Inspection. absent: Calf Tenderness, Pedal Edema - Neurological Exam Neurological Exam: Alert, Awake, Oriented x3 - Psychiatric Exam Psychiatric exam: Normal Affect, Normal Mood - Skin Skin Exam: Intact, Normal Color Assessment and Plan - Assessment and Plan (Free Text) Assessment: Patient is a 72 yo female with PMH HTN, depression, frequent falls, urinary retention presents for evaluation of frequent urination and dysuria; UA was positive for leuckocyte esterase, elevated urine WBC, many urine bacteria, urine RBC. Plan: UTI 04/04/18 UA: Nitrate postive, 3+ L.E, 4653 WBC, 835 RBC, many bacteria Ceftriaxone 1gm 100mls/hr Urology consulted: Jennifer- recommendations appreciated- as per patient should follow up outpatient; as per nursing mohr shud remain in place Mohr in place afebrile Insomnia Xanax 0.5mg po at night Ambien 5mg po at night Prophylaxis DVT: Heparin 5000 sc q8 kisha GI ppx: not indicated at this time
[2018-04-06 07:20] LABS: BASO % 0.6 % (0.0-2.0); EOS # 0.1 K/uL (0.0-0.7); EOS % 1.6 % (0.0-4.0); HEMOGLOBIN 14.2 g/dL (11.0-16.0); MEAN CELL VOLUME 89.8 fL (81.0-99.0); MEAN CORPUSCULAR HGB CONC 34.5 g/dL (33.0-37.0); MONO # 0.5 K/uL (0.0-0.8); MONO % 9.4 % (0.0-10.0); NEUT # 3.4 K/uL (1.8-7.0); NEUT % 68.4 % (50.0-75.0); NRBC % 0.1 % (0.0-2.0); RBC 4.57 Mil/uL (3.80-5.20); RED CELL DISTRIBUTION WIDTH 13.2 % (11.5-14.5)
[2018-04-06 08:06] LABS: BLOOD UREA NITROGEN 15 mg/dL (7-17); GFR AFRICAN-AMERICAN > 60; GFR NON-AFRICAN AMERICAN > 60
[2018-04-06 08:07] LABS: ALBUMIN 4.8 g/dL (3.5-5.0); ALT/SGPT 16 U/L (9-52); AST/SGOT 34 U/L (14-36); CALCIUM 10.1 mg/dl (8.6-10.4)
[2018-04-06 08:30] VITALS: PULSE 90; TEMP 98.1
--- NOTE | 2018-04-06 09:34 | CP.PCM.DIS ---
Provider - Provider Date of Admission: 04/04/18 17:50 Attending physician: Kain Abdul MD Time Spent in preparation of Discharge (in minutes): 45 Hospital Course - Lab Results Lab Results: Micro Results 04/04/18 16:13 Urine,Mohr Urine Culture - Final Escherichia Coli 04/04/18 17:00 Blood Blood Culture - Preliminary NO GROWTH AFTER 24 HOURS 04/04/18 16:30 Blood Blood Culture - Preliminary NO GROWTH AFTER 24 HOURS Most Recent Lab Values WBC 5.0 K/uL (4.8-10.8) 04/06/18 07:09 RBC 4.57 Mil/uL (3.80-5.20) 04/06/18 07:09 Hgb 14.2 g/dL (11.0-16.0) 04/06/18 07:09 Hct 41.0 % (34.0-47.0) 04/06/18 07:09 MCV 89.8 fL (81.0-99.0) 04/06/18 07:09 MCH 31.0 pg (27.0-31.0) 04/06/18 07:09 MCHC 34.5 g/dL (33.0-37.0) 04/06/18 07:09 RDW 13.2 % (11.5-14.5) 04/06/18 07:09 Plt Count 209 K/uL (130-400) 04/06/18 07:09 MPV 10.0 fL (7.2-11.7) 04/06/18 07:09 Neut % (Auto) 68.4 % (50.0-75.0) 04/06/18 07:09 Lymph % (Auto) 20.0 % (20.0-40.0) 04/06/18 07:09 [place] % (Auto) 9.4 % (0.0-10.0) 04/06/18 07:09 Eos % (Auto) 1.6 % (0.0-4.0) 04/06/18 07:09 Baso % (Auto) 0.6 % (0.0-2.0) 04/06/18 07:09 Neut # (Auto) 3.4 K/uL (1.8-7.0) 04/06/18 07:09 Lymph # (Auto) 1.0 K/uL (1.0-4.3) 04/06/18 07:09 [place] # (Auto) 0.5 K/uL (0.0-0.8) 04/06/18 07:09 Eos # (Auto) 0.1 K/uL (0.0-0.7) 04/06/18 07:09 Baso # (Auto) 0.0 K/uL (0.0-0.2) 04/06/18 07:09 Sodium 144 mmol/L (132-148) 04/06/18 07:09 Potassium 4.0 mmol/L (3.6-5.2) 04/06/18 07:09 Chloride 101 mmol/L (98-107) 04/06/18 07:09 Carbon Dioxide 28 mmol/L (22-30) 04/06/18 07:09 Anion Gap 20 (10-20) 04/06/18 07:09 BUN 15 mg/dL (7-17) 04/06/18 07:09 Creatinine 0.7 mg/dL (0.7-1.2) 04/06/18 07:09 Est GFR ( Amer) > 60 04/06/18 07:09 Est GFR (Non-Af Amer) > 60 04/06/18 07:09 Random Glucose 126 mg/dL (65-105) H 04/06/18 07:09 Calcium 10.1 mg/dl (8.6-10.4) 04/06/18 07:09 Phosphorus 4.1 mg/dL (2.5-4.5) 04/06/18 07:09 Magnesium 2.0 mg/dL (1.6-2.3) 04/06/18 07:09 Total Bilirubin 0.4 mg/dL (0.2-1.3) 04/06/18 07:09 AST 34 U/L (14-36) 04/06/18 07:09 ALT 16 U/L (9-52) 04/06/18 07:09 Alkaline Phosphatase 80 U/L (38-126) 04/06/18 07:09 Troponin I < 0.0120 ng/mL (0.00-0.120) 04/04/18 16:24 Total Protein 9.8 g/dL (6.3-8.3) H 04/06/18 07:09 Albumin 4.8 g/dL (3.5-5.0) 04/06/18 07:09 Globulin 5.0 gm/dL (2.2-3.9) H 04/06/18 07:09 Albumin/Globulin Ratio 1.0 (1.0-2.1) 04/06/18 07:09 Urine Color Yellow (YELLOW) 04/04/18 17:15 Urine Clarity Turbid (Clear) 04/04/18 17:15 Urine pH 6.0 (5.0-8.0) 04/04/18 17:15 Ur Specific [place] 1.008 (1.003-1.030) 04/04/18 17:15 Urine Protein 2+ mg/dL (NEGATIVE) H 04/04/18 17:15 Urine Glucose (UA) Normal mg/dL (Normal) 04/04/18 17:15 Urine Ketones Negative mg/dL (NEGATIVE) 04/04/18 17:15 Urine Blood 1+ (NEGATIVE) H 04/04/18 17:15 Urine Nitrate Positive (NEGATIVE) H 04/04/18 17:15 Urine Bilirubin Negative (NEGATIVE) 04/04/18 17:15 Urine Urobilinogen Normal mg/dL (0.2-1.0) 04/04/18 17:15 Ur Leukocyte Esterase 3+ [place]/uL (Negative) H 04/04/18 17:15 Urine WBC (Auto) 4563 /hpf (0-5) H 04/04/18 17:15 Urine RBC (Auto) 835 /hpf (0-3) H 04/04/18 17:15 Urine Bacteria Many (<OCC) H 04/04/18 17:15 - Hospital Course Hospital Course: HPI: 72yo F with a PMH of HTN, Depression, frequent falls and a recent admission at [facility] for urinary retention presents to the ED with complaints of frequent urination, dysuria and dizziness for 1 week. Pt feels like her bladder is very full. she denies accidents, leakage or incomplete emptying. Pt says she began to get fevers and chills for the past 3 days. Pt says the urine looks frothy. Recent past hospitalization was from a fall that resulted in a superficial occipital laceration. Pt says she fell from her dizziness. Pt says she follwed up with her PMD upon admission on Mar 27. Pt treated in ED, Pus seen in Mohr, given Ceftriaxone. ROS: pos + Fevers chills, dizzy, dysuria, increased frequency, neck pain, headache neg- weakness, change in vision, loss of bladder control, blood in urine, dark urine, back pain, sick contacts, chest pain, palpitaions, SOB Pharmacy: [facility] PMD: Dr Randhawa PMH: HTN, Depression, falls, urinary retention ([facility] hospitaliszation ) PSx:C section, Bladder Lift? Dr Christine Urologist SocHx: denies tobacco and drugs, lives alone. Drinks 8+ beers on weekends Fam Hx: none Allerg: none Full COde Hospital course: Pt admitted for urinary retention and cloudy urine. Urine cultures grew E.Coli. Pt had mohr catheter inserted upon arrival to ED. 1500ml removed from mohr on 04/05, 1400ml removed on 04/05, 400ml removed 04/07. Pt treated with ceftriaxone 1g IVPB. Pt afebrile and normal WBC. E Coli sensitivities show ceftriaxone <1, pt discharged with PO 3rd generation cephalosporin Vantin. instructions: 1. Vantin 200mg twice a day for 7 days, take as prescribed 2. Follow up with Dr Randhawa within one week 3. Follow up with Dr Rodriguez within one week Discharge Exam - Head Exam Head Exam: NORMAL INSPECTION, NORMOCEPHALIC - Eye Exam Eye Exam: EOMI, Normal appearance - ENT Exam ENT Exam: Mucous Membranes Moist - Neck Exam Neck exam: Normal Inspection - Respiratory Exam Respiratory Exam: Clear to PA & Lateral, NORMAL BREATHING PATTERN, UNREMARKABLE - Cardiovascular Exam Cardiovascular Exam: RRR, +S1, +S2 - GI/Abdominal Exam GI & Abdominal Exam: Normal Bowel Sounds, Unremarkable. absent: Tenderness - Exam Exam: absent: Bladder Distension - Extremities Exam Extremities exam: normal inspection - Neurological Exam Neurological exam: Alert, CN II-XII Intact, Oriented x3 - Psychiatric Exam Psychiatric exam: Normal Affect, Normal Mood - Skin Skin Exam: Dry, Normal Color, Warm Discharge Plan - Discharge Medications Prescriptions: Cefpodoxime [Vantin] 200 mg PO Q12 #14 tab - Follow Up Plan Condition: FAIR Disposition: HOME/ ROUTINE Instructions: Urinary Tract Infection in Women (DC), Dysuria (GEN), Urinary Tract Infection in Men (DC) Referrals: Bernabe Randhawa MD [Medical Doctor] - Naresh Rodriguez MD [Staff Provider] -
--- NOTE | 2018-04-06 12:35 | CP.PCM.PN ---
Subjective - Date & Time of Evaluation Date of Evaluation: 04/06/18 Time of Evaluation: 12:32 - Subjective Subjective: Pt seen and exaimined at bedside. Pt has no complaints overnight. Pt reports better clarity of urine in mohr bag. Pt feels substantial relief since bladder emptying with catheterization. Pt reports no issues with mohr. Pt denies f/c n/ v chest pain sob Objective - Vital Signs/Intake and Output Vital Signs (last 24 hours): Temp Pulse Resp BP Pulse Ox 98.1 F 90 20 132/80 97 04/06/18 08:29 04/06/18 08:29 04/06/18 08:29 04/06/18 08:29 04/06/18 08:29 Intake and Output: 04/06/18 04/06/18 06:59 18:59 Intake Total 600 Output Total 800 400 Balance -200 -400 - Medications Medications: Current Medications Alprazolam (Xanax) 0.5 mg PO DAILY [facility] Last Admin: 04/06/18 11:02 Dose: Not Given Heparin Sodium (Porcine) (Heparin) 5,000 units SC Q8 [facility] Last Admin: 04/06/18 05:06 Dose: Not Given Ceftriaxone Sodium 1 gm/ (Sodium Chloride) 100 mls @ 100 mls/hr IVPB DAILY [facility] PRN Reason: Protocol Last Admin: 04/05/18 10:07 Dose: 100 mls/hr Zolpidem Tartrate (Ambien) 5 mg PO PRN PRN Reason: Insomnia Last Admin: 04/05/18 21:28 Dose: 5 mg - Labs Labs: 04/06/18 07:09 04/06/18 07:09 - Constitutional Appears: Well, Non-toxic, No Acute Distress - Head Exam Head Exam: ATRAUMATIC Additional comments: occipital scalp laceration, healing scabbed not bleeding - Eye Exam Eye Exam: EOMI, Normal appearance. absent: Scleral icterus - ENT Exam ENT Exam: Mucous Membranes Moist - Respiratory Exam Respiratory Exam: Clear to Ausculation Bilateral, NORMAL BREATHING PATTERN - Cardiovascular Exam Cardiovascular Exam: RRR, +S1, +S2 - GI/Abdominal Exam GI & Abdominal Exam: Normal Bowel Sounds. absent: Tenderness - Exam Exam: absent: Bladder Distension - Extremities Exam Extremities Exam: Normal Inspection - Back Exam Back Exam: NORMAL INSPECTION - Neurological Exam Neurological Exam: Alert, Awake, CN II-XII Intact, Normal Gait, Oriented x3 Neuro motor strength exam: Left Upper Extremity: 5, Right Upper Extremity: 5, Left Lower Extremity: 5, Right Lower Extremity: 5 - Psychiatric Exam Psychiatric exam: Normal Affect, Normal Mood - Skin Skin Exam: Dry, Normal Color, Warm Assessment and Plan - Assessment and Plan (Free Text) Assessment: UTI 04/04/18 UA: Nitrate postive, 3+ L.E, 4653 WBC, 835 RBC, many bacteria Ceftriaxone 1gm 100mls/hr Urology consulted: Jennifer- recommendations appreciated- as per patient should follow up outpatient; as per nursing mohr shud remain in place Mohr in place afebrile UC: e.coli sensitive to ceftriaxone <1, ertapenem and meropenem <0.25 Insomnia Xanax 0.5mg po at night Ambien 5mg po at night Prophylaxis DVT: Heparin 5000 sc q8 [facility] GI ppx: not indicated at this time
[2018-04-06 17:05] VITALS: BP 147/81; O2SAT 98
== END 2018-04-06 18:00 | disposition home or self-care (01) | DRG 320 ==
LOC: C.ER 15:28 → C.9E 17:50 → C.3T 22:21
PROVIDERS: ADMIT Internal Medicine; ATTEND Internal Medicine
DX: N39.0 Urinary tract infection, site not specified (principal); R32 Unspecified urinary incontinence; I10 Essential (primary) hypertension; G47.00 Insomnia, unspecified

== ENCOUNTER 2018-07-20 16:41 | Emergency (ER) | payer MEDICAID, OTHER ==
[2018-07-20 16:42] VITALS: BMI 27.4
[2018-07-20 19:28] LABS: SQUAMOUS EPITHIAL 6 /hpf (0-5); URINE BILIRUBIN NEGATIVE (NEGATIVE); URINE BLOOD NEGATIVE (NEGATIVE); URINE CLARITY Clear (Clear); URINE COLOR Yellow (YELLOW); URINE GLUCOSE (UA) NORMAL (Normal); URINE LEUKOCYTE ESTERASE TRACE Leu/uL (Negative); URINE PROTEIN NEGATIVE (NEGATIVE); URINE UROBILINOGEN NORMAL mg/dL (0.2-1.0)
--- NOTE | 2018-07-20 20:09 | C.PDOC ---
History Of Present Illness 72 year old female presents to the ED c/o suprapubic abdominal pain associated with dysuria for the past 3 days. Patient reports she does not feel complete emptying when urinating. Patient also reports having subjective fever yesterday but did not record her temperature. Patient denies chills, nausea, vomit, diarrhea, back pain, hematuria, vaginal bleeding, vaginal discharge. Time Seen by Provider: 07/20/18 18:46 Chief Complaint (Nursing): Female Genitourinary History Per: Patient History/Exam Limitations: no limitations Onset/Duration Of Symptoms: Days (3) Current Symptoms Are (Timing): Still Present Quality Of Discomfort: "Pain" Associated Symptoms: Urinary Symptoms. denies: Nausea, Vomiting, Diarrhea, Constipation Recent travel outside of the [place]: No Additional History Per: Patient Abnormal Vaginal Bleeding: No Past Medical History Reviewed: Historical Data, Nursing Documentation, Vital Signs Vital Signs: Last Vital Signs Temp 98.8 F 07/20/18 17:25 Pulse 88 07/20/18 17:25 Resp 18 07/20/18 17:25 BP 114/79 07/20/18 17:25 Pulse Ox 97 07/20/18 17:25 - Medical History PMH: Anxiety, Depression, Kidney Stones, Chronic Kidney Disease Denies: HTN (denies hypertension) Surgical History: No Surg Hx - [facility] Procedures INSERT INDWELLING CATH (05/19/15) Family History: States: Unknown Family Hx - Social History Hx Tobacco Use: No Hx Alcohol Use: No Hx Substance Use: No - Immunization History Hx Tetanus Toxoid Vaccination: No Hx Influenza Vaccination: Yes Hx Pneumococcal Vaccination: No Review Of Systems Constitutional: Positive for: Fever. Negative for: Chills Cardiovascular: Negative for: Chest Pain Respiratory: Negative for: Shortness of Breath Gastrointestinal: Positive for: Abdominal Pain. Negative for: Nausea, Vomiting, Diarrhea Genitourinary: Positive for: Dysuria. Negative for: Hematuria, Vaginal Discharge, Vaginal Bleeding Musculoskeletal: Negative for: Back Pain Skin: Negative for: Rash Physical Exam - Physical Exam Appears: Non-toxic, No Acute Distress Skin: Normal Color, Warm, Dry Head: Atraumatic, Normacephalic Eye(s): bilateral: Normal Inspection Oral Mucosa: Moist Neck: Normal ROM, Supple Chest: Symmetrical Cardiovascular: Rhythm Regular Respiratory: Normal Breath Sounds, No Rales, No Rhonchi, No Wheezing Gastrointestinal/Abdominal: Soft, Tenderness (suprapubic), No Guarding, No Rebound Back: No CVA Tenderness Extremity: Normal ROM, No Tenderness, No Swelling Neurological/Psych: Oriented x3, Normal Speech, Normal Cognition Gait: Steady ED Course And Treatment O2 Sat by Pulse Oximetry: 97 (ON RA) Pulse Ox Interpretation: Normal Medical Decision Making Medical Decision Making: Plan: * UA * urine culture Disposition Counseled Patient/Family Regarding: Studies Performed, Diagnosis - Disposition Referrals: Bernabe Randhawa MD [Medical Doctor] - Disposition: HOME/ ROUTINE Disposition Time: 21:03 Condition: STABLE Prescriptions: Nitrofurantoin Macrocrystals [Macrobid] 100 mg PO BID #14 cap Instructions: Urinary Tract Infection, Adult (DC) Forms: [facility] (Yoruba), General Discharge Instructions - POA Present On Arrival: None - Clinical Impression Clinical Impression: UTI (urinary tract infection) - Scribe Statement The provider has reviewed the documentation as recorded by the Scribe Les Lama All medical record entries made by the Scribe were at my direction and personally dictated by me. I have reviewed the chart and agree that the record accurately reflects my personal performance of the history, physical exam, medical decision making, and the department course for this patient. I have also personally directed, reviewed, and agree with the discharge instructions and disposition.
[2018-07-20 20:11] LABS: URINE BACTERIA OCC (<OCC)
[2018-07-20 21:25] VITALS: BP 143/64; PULSE 78; RESP 16; TEMP 98.1; O2SAT 98
== END 2018-07-20 21:23 | disposition home or self-care (01) ==
LOC: C.ER 16:41
DX: N39.0 Urinary tract infection, site not specified (principal); N18.9 Chronic kidney disease, unspecified; Z87.442 Personal history of urinary calculi

== ENCOUNTER 2018-07-29 15:38 | Emergency (ER) | payer OTHER ==
[2018-07-29 15:39] VITALS: BMI 27.4
[2018-07-29 16:06] VITALS: TEMP 97.7; O2SAT 97
--- NOTE | 2018-07-29 17:03 | RAD ---
Date of service: 07/29/2018 PROCEDURE: Radiographs of the Left Shoulder HISTORY: pain COMPARISON: No prior. FINDINGS: BONES: Normal. No fracture. JOINTS: Glenohumeral osteoarthritis. No articular erosion. Degenerative arthritis at the acromioclavicular articulation. SOFT TISSUES: Normal. OTHER FINDINGS: None. IMPRESSION: Glenohumeral osteoarthritis and acromioclavicular degenerative arthritis.
[2018-07-29 17:28] LABS: BASO % 0.7 % (0.0-2.0); EOS # 0.1 K/uL (0.0-0.7); HEMOGLOBIN 12.9 g/dL (11.0-16.0); LYMPH # 0.7 K/uL (1.0-4.3); LYMPH % 23.2 % (20.0-40.0); MEAN CELL VOLUME 88.7 fL (81.0-99.0); MEAN CORPUSCULAR HEMOGLOBIN 30.5 pg (27.0-31.0); MEAN CORPUSCULAR HGB CONC 34.3 g/dL (33.0-37.0); MEAN PLATELET VOLUME 9.2 fL (7.2-11.7); MONO # 0.3 K/uL (0.0-0.8); NEUT # 1.8 K/uL (1.8-7.0); NEUT % 63.1 % (50.0-75.0); NRBC % 0.2 % (0.0-2.0); RBC 4.23 Mil/uL (3.80-5.20); RED CELL DISTRIBUTION WIDTH 13.6 % (11.5-14.5); WHITE BLOOD COUNT 2.9 K/uL (4.8-10.8)
[2018-07-29 17:42] LABS: ALBUMIN 4.3 g/dL (3.5-5.0); ALT/SGPT 17 U/L (9-52); AST/SGOT 37 U/L (14-36); BLOOD UREA NITROGEN 17 mg/dL (7-17); CALCIUM 9.5 mg/dl (8.6-10.4); GFR NON-AFRICAN AMERICAN > 60
--- NOTE | 2018-07-29 17:44 | CT ---
Date of service: 07/29/2018 PROCEDURE: CT Abdomen and Pelvis without intravenous contrast HISTORY: Pain COMPARISON: None. TECHNIQUE: CT scan of the abdomen and pelvis was performed without administration of intravenous contrast. Oral contrast was not administered. Coronal and sagittal reformatted images were obtained. . Radiation dose: Total exam DLP = 436.44 mGy-cm. This CT exam was performed using one or more of the following dose reduction techniques: Automated exposure control, adjustment of the mA and/or kV according to patient size, and/or use of iterative reconstruction technique. FINDINGS: LOWER THORAX: The visualized lungs are clear. LIVER: Normal in size. No intrahepatic ductal dilatation. GALLBLADDER AND BILE DUCTS: No calcified gallstones. No biliary dilatation PANCREAS: Normal in size. No ductal dilatation. SPLEEN: Normal in size. ADRENALS: Normal in size. No discrete nodule. KIDNEYS AND URETERS: Normal in size without nephrolithiasis. No hydronephrosis. VASCULATURE: No aortic aneurysm. Mild aortic atherosclerotic calcifications present. BOWEL: The small bowel loops are normal in caliber. Large amount of stool in the colon. There is extensive sigmoid diverticulosis without CT evidence for acute diverticulitis. No bowel dilatation or wall thickening. No bowel obstruction. APPENDIX: No evidence of acute appendicitis. PERITONEUM: No free fluid. No free air. LYMPH NODES: No enlarged lymph nodes. BLADDER: Well distended and grossly normal in appearance. REPRODUCTIVE: The uterus is normal in size BONES: No acute fracture. There is diffuse bone demineralization and multilevel degenerative changes in the spine. OTHER FINDINGS: There is a small sliding hiatal. IMPRESSION: No acute abdominal or pelvic abnormality. Constipation. No bowel obstruction. Extensive sigmoid diverticulosis without CT evidence for acute diverticulitis.
--- NOTE | 2018-07-29 17:45 | C.PDOC ---
History Of Present Illness 72 y/o female presents to the ER for evaluation of difficulty passing urine for the past few years. Patient states that she called , urologist, on the phone and he instructed her to come to the ER. Patient is also complaining of intermittent headache and left shoulder pain s/p fall 1 year ago. Denies having fever, chills, hematuria, and other complaints at this time. Time Seen by Provider: 07/29/18 16:21 Chief Complaint (Nursing): Abdominal Pain History Per: Patient History/Exam Limitations: no limitations Onset/Duration Of Symptoms: Days Current Symptoms Are (Timing): Still Present Severity: Moderate Location Of Pain/Discomfort: Suprapubic Quality Of Discomfort: Burning Past Medical History Reviewed: Historical Data, Nursing Documentation, Vital Signs Vital Signs: Last Vital Signs Temp 97.7 F 07/29/18 16:00 Pulse 111 H 07/29/18 16:00 Resp 20 07/29/18 16:00 BP 124/78 07/29/18 16:00 Pulse Ox 97 07/29/18 16:00 - Medical History PMH: Anxiety, Depression, Kidney Stones, Chronic Kidney Disease Denies: HTN (denies hypertension) Other Surgeries: Hx of surgeries - [facility] Procedures INSERT INDWELLING CATH (05/19/15) Family History: States: No Known Family Hx - Social History Hx Tobacco Use: No Hx Alcohol Use: No Hx Substance Use: No - Immunization History Hx Tetanus Toxoid Vaccination: No Hx Influenza Vaccination: Yes Hx Pneumococcal Vaccination: No Review Of Systems Except As Marked, All Systems Reviewed And Found Negative. Constitutional: Negative for: Fever, Chills Genitourinary: Positive for: Dysuria, Other (difficulty passing urine) Musculoskeletal: Positive for: Shoulder Pain (left shoulder pain) Neurological: Positive for: Headache Physical Exam - Physical Exam Appears: Non-toxic, No Acute Distress Skin: Normal Color, Warm, Dry Head: Atraumatic, Normacephalic Eye(s): bilateral: Normal Inspection Nose: Normal Oral Mucosa: Moist Neck: Supple Chest: Symmetrical Cardiovascular: Rhythm Regular Respiratory: Normal Breath Sounds, No Rales, No Rhonchi, No Wheezing Gastrointestinal/Abdominal: Soft, Tenderness (suprapubic tenderness), No Guarding, No Rebound Pelvic: Normal External Exam Extremity: Normal ROM Neurological/Psych: Oriented x3, Normal Speech Gait: Steady ED Course And Treatment - Laboratory Results Result Diagrams: 07/29/18 17:24 07/29/18 17:24 Lab Interpretation: Normal O2 Sat by Pulse Oximetry: 97 (RA) Pulse Ox Interpretation: Normal - Other Rad No standard instances Interpretation: Shoulder X-Ray: neg - CT Scan/US No standard instances Other Rad Studies (CT/US): Read By Radiologist, Radiology Report Reviewed CT/US Interpretation: FINDINGS: LOWER THORAX: The visualized lungs are clear. LIVER: Normal in size. No intrahepatic ductal dilatation. GALLBLADDER AND BILE DUCTS: No calcified gallstones. No biliary dilatation. PANCREAS: Normal in size. No ductal dilatation. SPLEEN: Normal in size. ADRENALS: Normal in size. No discrete nodule. KIDNEYS AND URETERS: Normal in size without neph rolithiasis. No hydronephrosis. VASCULATURE: No aortic aneurysm. Mild aortic atherosclerotic calcifications present. BOWEL: The small bowel loops are normal in caliber. Large amount of stool in the colon. There is extensive sigmoid diverticulosis without CT evidence for acute diverticulitis. No bowel dilatation or wall thickening. No bowel obstruction. APPENDIX: No evidence of acute appendicitis. PERITONEUM: No free fluid. No free air. LYMPH NODES: No enlarged lymph nodes. BLADDER: Well distended and grossly normal in appearance. REPRODUCTIVE: The uterus is normal in size. BONES: No acute fracture. There is diffuse bone demineralization and multilevel degenerative changes in the spine. OTHER FINDINGS: There is a small sliding hiatal. IMPRESSION: No acute abdominal or pelvic abnormality. Constipation. No bowel obstruction. Extensive sigmoid diverticulosis without CT evidence for acute diverticulitis. Progress Note: treated with IVF. Bladder scan > 200 ml urine. Straight cath > 200 ml urine. Abdomen soft non-tender Reassessment Condition: Improved Medical Decision Making Medical Decision Making: Plan: --Labs --UA --CT-Abd & Pelv. Disposition Counseled Patient/Family Regarding: Studies Performed, Diagnosis, Need For Follo wup - Disposition Referrals: Naresh Rodriguez MD [Staff Provider] - Disposition: HOME/ ROUTINE Disposition Time: 19:00 Condition: STABLE Additional Instructions: Follow up with Dr Rodriguez for further evaluation Instructions: Dysuria, Adult (DC) Forms: [facility] [employer] (Haitian) - POA Present On Arrival: None - Clinical Impression Clinical Impression: Constipation, Dysuria, History of dysuria - PA / CUSTOMER ENERGY SPECIALIST / Resident Statement MD/DO has reviewed & agrees with the documentation as recorded. - Scribe Statement The provider has reviewed the documentation as recorded by the Domoniqueibrolo Chau Provider Attestation All medical record entries made by the Olive were at my direction and personally dictated by me. I have reviewed the chart and agree that the record accurately reflects my personal performance of the history, physical exam, medical decision making, and the department course for this patient. I have also personally directed, reviewed, and agree with the discharge instructions and disposition.
[2018-07-29 18:45] LABS: URINE BILIRUBIN NEGATIVE (NEGATIVE); URINE BLOOD NEGATIVE (NEGATIVE); URINE CLARITY Clear (Clear); URINE COLOR Yellow (YELLOW); URINE GLUCOSE (UA) NORMAL (Normal); URINE LEUKOCYTE ESTERASE NEG Leu/uL (Negative); URINE PROTEIN NEGATIVE (NEGATIVE); URINE UROBILINOGEN NORMAL mg/dL (0.2-1.0)
[2018-07-29 19:35] VITALS: BP 138/76; PULSE 77; RESP 16
== END 2018-07-29 18:55 | disposition home or self-care (01) ==
LOC: C.ER 15:38
DX: K59.00 Constipation, unspecified (principal); R30.0 Dysuria